=== PATIENT | female | born 1960 | race Caucasian/White ===

== ENCOUNTER 2016-04-14 16:48 | Inpatient (IN) | payer OTHER ==
[2016-04-14 19:27] VITALS: BMI 29.6
--- NOTE | 2016-04-14 20:11 | HP ---
COWS - Scale Resting Pulse: 0= CO 80 or Below Sweatin=Flushed/Facial Moisture Restless Observation: 5= Unable to Sit Still Pupil Size: 1= Pupils >than Normal Bone or Joint Aches: 4=Acute Joint/Muscle Pain Runny Nose/ Eye Tearin= None GI Upset > 30mins: 0= None Tremor Observation: 2= Slight Tremor Visible Yawning Observation: 1= 1-2x During Session Anxiety or Irritability: 2=Irritable/Anxious Goose Flesh Skin: 0=Smooth Skin COWS Score: 17 Admission ROS S - HPI Chief Complaint: C/O WITHDRAWAL SX'S. SEEKING DETOX TXMENT. Allergies/Adverse Reactions: Allergies Allergy/AdvReac Type Severity Reaction Status Date / Time No Known Allergies Allergy Verified 12/05/15 16:40 History of Present Illness: 56 Y.O. FEMALE WITH OPIOID DEPENDENCE ADMITTED FOR DETOX TXMENT. LAST HERE 2015. DENIES ANY DETOX SINCE. ALSO DENIES SUBOXONE USE FOR PAST 3 WEEKS. HAS SINCE BEEN USING HEROIN. DOES NOT WANT TO CONTINUE SUBOXONE. INTERESTED IN VIVITROL AFTER DC. Exam Limitations: No Limitations - Ebola screening Have you traveled outside of the country in the last 21 days: No Have you had contact with anyone from an Ebola affected area: No Have you been sick,other than usual withdrawal symptoms: No Do you have a fever: No - Review of Systems Constitutional: Loss of Appetite, Malaise, Night Sweats, Changes in sleep EENT: reports: No Symptoms Reported Respiratory: reports: No Symptoms reported Cardiac: reports: No Symptoms Reported GI: reports: Poor Appetite : reports: No Symptoms Reported Musculoskeletal: reports: Joint Pain Integumentary: reports: No Symptoms Reported Neuro: reports: No Symptoms reported Endocrine: reports: No Symptoms Reported Hematology: reports: No Symptoms Reported Psychiatric: reports: Anxious Other Systems: Reviewed and Negative Patient History - Patient Medical History Hx Anemia: No Hx Asthma: No Hx Chronic Obstructive Pulmonary Disease (COPD): No Hx Cancer: No Hx Cardiac Disorders: No Hx Congestive Heart Failure: No Hx Hypertension: Yes (ON MEDICATION) Hx Hypercholesterolemia: No Hx Pacemaker: No HX Cerebrovascular Accident: No Hx Seizures: No Hx Dementia: No Hx Diabetes: No Hx Gastrointestinal Disorders: No Hx Liver Disease: No Hx Genitourinary Disorders: No Hx Sexually Transmitted Disorders: No Hx Renal Disease (ESRD): No Hx Thyroid Disease: No Hx Human Immunodeficiency Virus (HIV): No Hx Hepatitis C: No Hx Depression: No Hx Suicide Attempt: No Hx Bipolar Disorder: No Hx Schizophrenia: No Other Medical History: DENIES - Patient Surgical History Past Surgical History: No Hx Neurologic Surgery: No Hx Cataract Extraction: No Hx Cardiac Surgery: No Hx Lung Surgery: No Hx Breast Surgery: No Hx Breast Biopsy: No Hx Abdominal Surgery: No Hx Appendectomy: No Hx Cholecystectomy: No Hx Genitourinary Surgery: No Hx Section: No Hx Orthopedic Surgery: No Hx Hysterectomy: No Anesthesia Reaction: No - PPD History Previous Implant?: Yes Documented Results: Negative w/proof Implanted On Prior [facility] Admission?: Yes Date: 08/06/15 PPD to be Administered?: No - Reproductive History Patient is a Female of Child Bearing Age (11 -55 yrs old): No Patient : No (NEG [facility]CG) - Smoking Cessation Smoking history: Current every day smoker Have you smoked in the past 12 months: Yes Aproximately how many cigarettes per day: 10 Cigars Per Day: 0 Hx Chewing Tobacco Use: No Initiated information on smoking cessation: Yes 'Breaking Loose' booklet given: 04/14/16 - Substance & Tx. History Hx Alcohol Use: Yes Hx Substance Use: Yes Substance Use Type: Heroin Hx Substance Use Treatment: Yes ([facility]) - Substances Abused HEROIN Route: Inhalation Frequency: Daily Amount used: 1 BAG Age of first use: 53 Date of Last Use: 04/13/16 Family Disease History - Family Disease History Family History: Denies Admission Physical Exam BHS - Vital Signs Vital Signs: Vital Signs - 24 hr 04/14/16 19:25 Temperature 97.6 F Pulse Rate 77 Respiratory 20 Rate Blood Pressure 129/86 - Physical General Appearance: Yes: Appropriately Dressed, Anxious HEENTM: Yes: EOMI, Normocephalic, Normal Voice, GISELLA, Pharynx Normal Respiratory: Yes: Chest Non-Tender, Lungs Clear, Normal Breath Sounds, No Respiratory Distress, No Accessory Muscle Use Neck: Yes: No masses,lesions,Nodules, Supple, Trachea in good position Breast: Yes: Breast Exam Deferred Cardiology: Yes: Regular Rhythm, Regular Rate, S1, S2 Abdominal: Yes: Normal Bowel Sounds, Non Tender, Soft Genitourinary: Yes: Within Normal Limits Back: Yes: Normal Inspection Musculoskeletal: Yes: full range of Motion, Gait Steady Extremities: Yes: Normal Capillary Refill, Normal Range of Motion, Non-Tender, Tremors 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 intact, Fully Oriented, Alert, Motor Strength 5/5 Integumentary: Yes: Normal Color, Dry Lymphatic: Yes: Within Normal Limits - Diagnostic (1) Essential hypertension Current Visit: Yes Status: Chronic (2) Nicotine dependence Current Visit: Yes Status: Chronic Qualifiers: Nicotine product type: cigarettes Substance use status: uncomplicated Qualified Code(s): F17.210 - Nicotine dependence, cigarettes, uncomplicated (3) Opioid dependence with withdrawal Current Visit: Yes Status: Chronic Cleared for Admission [facility] - Detox or Rehab [facility] Level of Care: Medically Managed Detox Regimen/Protocol: Methadone [facility] Breath Alcohol Content Breath Alcohol Content: 0 Urine Pregancy Test - Result Urine Test Results: Negative- NO Line Present Urine Drug Screen - Results Drug Screen Negative: No Urine Drug Screen Results: OPI-Opiates, OXY-Oxycodone
[2016-04-14] MEDS ORDERED: METHADONE HCL 10 MG TABLET (FOR DETOX USE ONLY) PO ONE ×2 (20:20→23:00)
[2016-04-14] MEDS ORDERED: NICOTINE POLACRILEX 2 MG GUM BUC PRN (20:20)
[2016-04-14] MEDS ORDERED: guaiFENesin/D-METHORPHAN HB 10 ML UNIT-DOSE CUPS PO PRN (20:20)
[2016-04-14] MEDS ORDERED: P-EPHED 60MG/TRIPROLIDI 2.5MG TABLET PO PRN (20:20)
[2016-04-14] MEDS ORDERED: ACETAMINOPHEN 325 MG TABLET (FP) PO PRN (20:20)
[2016-04-14] MEDS ORDERED: IBUPROFEN 400 MG TABLET (FP) PO PRN (20:20)
[2016-04-14] MEDS ORDERED: MAG HYDROX/AL HYDROX/SIMETH 30 ML UNIT-DOSE CUP PO PRN (20:20)
[2016-04-14] MEDS ORDERED: MAGNESIUM HYDROX 2400MG/30ML ORAL SUSPENSION 30 ML CUP PO PRN (20:20)
[2016-04-14] MEDS ORDERED: hydrOXYzine PAMOATE 50 MG CAPSULE (FP) PO PRN (20:20)
[2016-04-14] MEDS ORDERED: MENTHOL/PHENOL 1 EACH UD MM PRN (20:20)
[2016-04-14] MEDS ORDERED: LOPERAMIDE HCL 2 MG CAPSULE PO PRN (20:20)
[2016-04-14] MEDS ORDERED: MAGNESIUM CITRATE 300 ML BOTTLE PO PRN (20:20)
[2016-04-14] MEDS: THIAMINE HCL 100 MG TABLET (FP) PO SCH (22:30)
[2016-04-14] MEDS: NICOTINE 14 MG/24 HOURS TOPICAL PATCH TD SCH (23:17)
[2016-04-15 09:52] LABS: MCH 30.5 pg (25.7-33.7); MCHC 34.6 g/dl (32.0-36.0); MEAN CELL VOLUME 88.1 fl (80-96); MEAN PLT VOLUME 8.4 fl (7.5-11.1); PLATELET COUNT 192 K/MM3 (134-434); RDW 12.9 % (11.6-15.6); WHITE BLOOD COUNT 7.6 K/mm3 (4.0-10.0)
[2016-04-15] MEDS ORDERED: METHADONE HCL 5 MG TABLET (FOR DETOX USE ONLY) PO ONE (10:00)
[2016-04-15 10:16] LABS: ALBUMIN 3.2 g/dl (3.4-5.0); ALK PHOS 51 U/L (45-117); ANION GAP 7 (8-16); BILIRUBIN,TOTAL 0.3 mg/dL (0.2-1.0); CALCIUM 8.4 mg/dL (8.5-10.1); CO2 28 mmol/L (21-32); CREATININE 0.6 mg/dL (0.55-1.02); GLUCOSE,RANDOM 88 mg/dL (74-106); SGOT/AST 24 U/L (15-37); SGPT/ALT 21 U/L (12-78); TOT PROT 5.8 g/dl (6.4-8.2)
[2016-04-15] MEDS: PRENATAL VITAMINS W/ FOLIC ACID TABLET (FP) PO SCH (10:20)
[2016-04-15] MEDS: NICOTINE 14 MG/24 HOURS TOPICAL PATCH TD SCH (10:21)
--- NOTE | 2016-04-15 10:58 | PN ---
BHS COWS - Scale Resting Pulse: 0= CO 80 or Below Sweatin= Chills/Flushing Restless Observation: 1= Difficult to Sit Still Pupil Size: 1= Pupils >than Normal Bone or Joint Aches: 2= Severe Diffuse Aches Runny Nose/ Eye Tearin= Nasal Congestion GI Upset > 30mins: 1= Stomach Cramp Tremor Observation of Outstretched Hands: 1= Tremor [place], Not Seen Yawning Observation: 0= None Anxiety or Irritability: 1=Feels Anxious/Irritable Goose Flesh Skin: 0=Smooth Skin COWS Score: 9 BHS Progress Note (SOAP) Subjective: feels good Objective: 04/15/16 10:57 Vital Signs Temperature 98.2 F 04/15/16 10:16 Pulse Rate 79 04/15/16 10:16 Respiratory Rate 18 04/15/16 10:16 Blood Pressure 143/55 04/15/16 10:16 O2 Sat by Pulse Oximetry (%) Laboratory Tests 04/15/16 04/15/16 06:30 07:00 WBC 7.6 D RBC 4.03 Hgb 12.3 D Hct 35.5 MCV 88.1 MCHC 34.6 RDW 12.9 Plt Count 192 D MPV 8.4 Sodium 144 Potassium 4.0 Chloride 109 H Carbon Dioxide 28 Anion Gap 7 L BUN 15 D Creatinine 0.6 Creat Clearance w eGFR > 60 Random Glucose 88 D Calcium 8.4 L Total Bilirubin 0.3 AST 24 D ALT 21 D Alkaline Phosphatase 51 Total Protein 5.8 L Albumin 3.2 L pt aox3 in nad, ambulating 04/15/16 10:59 Assessment: 04/15/16 10:59 withdrawal sx's Plan: cont. detox increase fluids
[2016-04-15 11:07] LABS: HIV 1 & 2 AB NEGATIVE; HIV 1 AGp24 NEGATIVE
--- NOTE | 2016-04-15 12:53 | EKG ---
Test Reason : Blood Pressure : / mmHG Vent. Rate : 062 BPM Atrial Rate : 062 BPM P-R Int : 104 ms QRS Dur : 108 ms QT Int : 440 ms P-R-T Axes : 012 054 038 degrees QTc Int : 446 ms SINUS RHYTHM WITH SHORT DC INCOMPLETE RIGHT BUNDLE BRANCH BLOCK BORDERLINE ECG WHEN COMPARED WITH ECG OF 03-DEC-2015 17:36, DC INTERVAL HAS DECREASED Confirmed by FELTON COOPER, RANDALL ([id number]) on 04/15/2016 12:53:06 PM Referred By: Confirmed By:RANDALL YA MD
[2016-04-15] MEDS: diazePAM 5 MG TABLET PO PRN (22:24)
[2016-04-15] MEDS: THIAMINE HCL 100 MG TABLET (FP) PO SCH (22:24)
[2016-04-16] MEDS ORDERED: METHADONE HCL 5 MG TABLET (FOR DETOX USE ONLY) PO ONE (10:00)
--- NOTE | 2016-04-16 10:08 | PN ---
BHS COWS - Scale Resting Pulse: 1= IN 81-100 Sweatin=Flushed/Facial Moisture Restless Observation: 0= Sits Still Pupil Size: 0= Normal to Room Light Bone or Joint Aches: 1= Mild Discomfort Runny Nose/ Eye Tearin= None GI Upset > 30mins: 0= None Tremor Observation of Outstretched Hands: 1= Tremor [place], Not Seen Yawning Observation: 0= None Anxiety or Irritability: 1=Feels Anxious/Irritable Goose Flesh Skin: 0=Smooth Skin COWS Score: 6 BHS Progress Note (SOAP) Subjective: little anxious but feeling better. Objective: 04/16/16 10:08 Vital Signs Temperature 98.4 F 04/16/16 09:47 Pulse Rate 85 04/16/16 09:47 Respiratory Rate 20 04/16/16 09:47 Blood Pressure 145/93 04/16/16 09:47 O2 Sat by Pulse Oximetry (%) Laboratory Tests 04/14/16 04/15/16 04/15/16 07:00 06:30 07:00 WBC 7.6 D RBC 4.03 Hgb 12.3 D Hct 35.5 MCV 88.1 MCHC 34.6 RDW 12.9 Plt Count 192 D MPV 8.4 Sodium 144 Potassium 4.0 Chloride 109 H Carbon Dioxide 28 Anion Gap 7 L BUN 15 D Creatinine 0.6 Creat Clearance w eGFR > 60 Random Glucose 88 D Calcium 8.4 L Total Bilirubin 0.3 AST 24 D ALT 21 D Alkaline Phosphatase 51 Total Protein 5.8 L Albumin 3.2 L RPR Titer Hepatitis C Antibody <0.1 HIV 1&2 Antibody Screen HIV P24 Antigen 04/15/16 04/15/16 07:00 07:00 WBC RBC Hgb Hct MCV MCHC RDW Plt Count MPV Sodium Potassium Chloride Carbon Dioxide Anion Gap BUN Creatinine Creat Clearance w eGFR Random Glucose Calcium Total Bilirubin AST ALT Alkaline Phosphatase Total Protein Albumin RPR Titer Nonreactive Hepatitis C Antibody HIV 1&2 Antibody Screen Negative HIV P24 Antigen Negative awake/alert ambulating no acute distress Assessment: 04/16/16 10:08 withdrawal sx Plan: continue detox increase fluids
[2016-04-16] MEDS: PRENATAL VITAMINS W/ FOLIC ACID TABLET (FP) PO SCH (10:23)
[2016-04-16] MEDS: NICOTINE 14 MG/24 HOURS TOPICAL PATCH TD SCH (10:23)
[2016-04-16] MEDS: diazePAM 5 MG TABLET PO PRN (22:07)
[2016-04-16] MEDS: THIAMINE HCL 100 MG TABLET (FP) PO SCH (22:08)
[2016-04-16] MEDS: diphenhydrAMINE HCL 50 MG CAPSULE PO PRN (22:08)
[2016-04-16 22:41] LABS: URINE APPEARANCE CLOUDY; URINE BILIRUBIN NEGATIVE (NEGATIVE); URINE BLOOD NEGATIVE (NEGATIVE); URINE COLOR YELLOW; URINE GLUCOSE (UA) NEGATIVE (NEGATIVE); URINE KETONE NEGATIVE (NEGATIVE); URINE NITRITE NEGATIVE (NEGATIVE); URINE PROTEIN NEGATIVE (NEGATIVE); URINE UROBILINOGEN NEGATIVE E.U./dl (0.2-1.0)
[2016-04-16 22:45] LABS: URINE LEUK ESTERASE 3+ (NEGATIVE)
[2016-04-16 23:19] LABS: URINE BACTERIA FEW /hpf (NONE SEEN); URINE MUCUS RARE; URINE RBC 2 /hpf (0-3); URINE WBC 19 /hpf (3-5)
[2016-04-17] MEDS ORDERED: METHADONE HCL 10 MG TABLET (FOR DETOX USE ONLY) PO ONE (10:00)
[2016-04-17] MEDS: PRENATAL VITAMINS W/ FOLIC ACID TABLET (FP) PO SCH (10:10)
[2016-04-17] MEDS: NICOTINE 14 MG/24 HOURS TOPICAL PATCH TD SCH (10:11)
--- NOTE | 2016-04-17 11:11 | PN ---
BHS Progress Note (SOAP) Subjective: sweats feeling better. Objective: 04/17/16 11:10 Vital Signs Temperature 97.5 F L 04/17/16 10:00 Pulse Rate 80 04/17/16 10:00 Respiratory Rate 18 04/17/16 10:00 Blood Pressure 117/94 04/17/16 10:00 O2 Sat by Pulse Oximetry (%) awake/alert ambulating no acute distress Assessment: 04/17/16 11:11 withdrawal sx Plan: continue detox increase fluids d/c in am
[2016-04-17] MEDS: THIAMINE HCL 100 MG TABLET (FP) PO SCH (22:20)
[2016-04-17] MEDS: diphenhydrAMINE HCL 50 MG CAPSULE PO PRN (22:21)
[2016-04-18] MEDS ORDERED: METHADONE HCL 5 MG TABLET (FOR DETOX USE ONLY) PO ONE (06:00)
[2016-04-18 07:59] VITALS: BP 146/98; PULSE 63; TEMP 97.2
--- NOTE | 2016-04-18 11:45 | DS ---
[facility] Detox Discharge Summary Admission Date: 04/14/16 Discharge Date: 04/18/16 - History Present History: Opioid Dependence, Sedative Dependence Pertinent Past History: HTN - Physical Exam Results Vital Signs: Vital Signs Temperature 97.2 F L 04/18/16 06:00 Pulse Rate 63 04/18/16 06:00 Respiratory Rate 16 04/18/16 06:00 Blood Pressure 146/98 04/18/16 06:00 O2 Sat by Pulse Oximetry (%) Pertinent Admission Physical Exam Findings: Withdrawal sx. Laboratory Last Values WBC 7.6 K/mm3 (4.0-10.0) D 04/15/16 06:30 RBC 4.03 M/mm3 (3.60-5.2) 04/15/16 06:30 Hgb 12.3 GM/dL (10.7-15.3) D 04/15/16 06:30 Hct 35.5 % (32.4-45.2) 04/15/16 06:30 MCV 88.1 fl (80-96) 04/15/16 06:30 MCHC 34.6 g/dl (32.0-36.0) 04/15/16 06:30 RDW 12.9 % (11.6-15.6) 04/15/16 06:30 Plt Count 192 K/MM3 (134-434) D 04/15/16 06:30 MPV 8.4 fl (7.5-11.1) 04/15/16 06:30 Sodium 144 mmol/L (136-145) 04/15/16 07:00 Potassium 4.0 mmol/L (3.5-5.1) 04/15/16 07:00 Chloride 109 mmol/L (98-107) H 04/15/16 07:00 Carbon Dioxide 28 mmol/L (21-32) 04/15/16 07:00 Anion Gap 7 (8-16) L 04/15/16 07:00 BUN 15 mg/dL (7-18) D 04/15/16 07:00 Creatinine 0.6 mg/dL (0.55-1.02) 04/15/16 07:00 Creat Clearance w eGFR > 60 (>60) 04/15/16 07:00 Random Glucose 88 mg/dL (74-106) D 04/15/16 07:00 Calcium 8.4 mg/dL (8.5-10.1) L 04/15/16 07:00 Total Bilirubin 0.3 mg/dL (0.2-1.0) 04/15/16 07:00 AST 24 U/L (15-37) D 04/15/16 07:00 ALT 21 U/L (12-78) D 04/15/16 07:00 Alkaline Phosphatase 51 U/L (45-117) 04/15/16 07:00 Total Protein 5.8 g/dl (6.4-8.2) L 04/15/16 07:00 Albumin 3.2 g/dl (3.4-5.0) L 04/15/16 07:00 Urine Color Yellow 04/16/16 20:45 Urine Appearance Cloudy 04/16/16 20:45 Urine pH 8.0 (5.0-8.0) 04/16/16 20:45 Ur Specific [place] 1.014 (1.001-1.035) 04/16/16 20:45 Urine Protein Negative (NEGATIVE) 04/16/16 20:45 Urine Glucose (UA) Negative (NEGATIVE) 04/16/16 20:45 Urine Ketones Negative (NEGATIVE) 04/16/16 20:45 Urine Blood Negative (NEGATIVE) 04/16/16 20:45 Urine Nitrite Negative (NEGATIVE) 04/16/16 20:45 Urine Bilirubin Negative (NEGATIVE) 04/16/16 20:45 Urine Urobilinogen Negative E.U./dl (0.2-1.0) 04/16/16 20:45 Ur Leukocyte Esterase 3+ (NEGATIVE) H D 04/16/16 20:45 Urine RBC 2 /hpf (0-3) 04/16/16 20:45 Urine WBC 19 /hpf (3-5) 04/16/16 20:45 Ur Epithelial Cells Many /hpf (FEW) 04/16/16 20:45 Urine Bacteria Few /hpf (NONE SEEN) 04/16/16 20:45 Urine Mucus Rare 04/16/16 20:45 RPR Titer Nonreactive (NONREACTIVE) 04/15/16 07:00 Hepatitis C Antibody <0.1 s/co ratio (0.0-0.9) 04/14/16 07:00 HIV 1&2 Antibody Screen Negative 04/15/16 07:00 HIV P24 Antigen Negative 04/15/16 07:00 labs noted - Treatment Hospital Course: Detox Protocol Followed, Detoxed Safely, Responded well, Discharged Condition Good, Rehab Referral Accepted Patient has Accepted a Rehab Referral to: [facility] - Medication Discharge Medications: Ambulatory Orders Valsartan 40 mg PO DAILY 08/04/15 - Diagnosis (1) Essential hypertension Status: Chronic (2) Nicotine dependence Status: Chronic Qualifiers: Nicotine product type: cigarettes Substance use status: uncomplicated Qualified Code(s): F17.210 - Nicotine dependence, cigarettes, uncomplicated (3) Opioid dependence with withdrawal Status: Acute (4) Uncomplicated sedative, hypnotic or anxiolytic withdrawal Status: Acute - AMA Did Patient Leave Against Medical Advice: No
== END 2016-04-18 09:30 | disposition home or self-care (01) | DRG 773 ==
LOC: YASAS 16:48 → Y6N 20:42
PROVIDERS: ADMIT Internal Medicine Addiction Medicine; ATTEND Internal Medicine Addiction Medicine
PROC: HZ2ZZZZ Detoxification Services for Substance Abuse Treatment (ICD-10-PCS; principal; 2016-04-18)
DX: F11.23 Opioid dependence with withdrawal (principal); F13.230 Sedative, hypnotic or anxiolytic dependence with withdrawal, uncomplicated; F17.210 Nicotine dependence, cigarettes, uncomplicated; I10 Essential (primary) hypertension
CPT/HCPCS: 36415; 80053; 81003; 81015; 85027; 86593; 87389; 93005; 93010

== ENCOUNTER 2016-09-01 18:30 | Emergency (ER) | payer OTHER ==
[2016-09-01 18:37] VITALS: BP 141/99; PULSE 85; TEMP 98.1; BMI 29.2
[2016-09-01] MEDS ORDERED: KETOROLAC TROMETHAMINE 60 MG/2 ML VIAL IM ONE (19:50)
--- NOTE | 2016-09-01 19:50 | PDOC ---
History of Present Illness - History of Present Illness Initial Comments: 09/01/16 19:53 The patient is a 56 year old female, with a significant past medical history of hypertension, who presents to the emergency department with pain to her left hip for 3 days s/p falling down 8 steps in her house about a week ago. The patient denies any severe pain immediately after her fall. The patient denies head trauma. She denies loss of consciousness. The patient reports her pain as 10/10, sharp and throbbing, localized to the left hip and radiating to her left lateral saunders. She reports tenderness to her left lateral saunders as well as numbness. She reports her pain is exacerbated with lying flat and walking. SHe reports mild alleviation of her pain with sitting. She also reports taking two 5mg percocets that she had left over yesterday with little to no pain relief. She denies chest pain, shortness of breath, headache and dizziness. She denies fever, chills, nausea, vomit, diarrhea and constipation. She denies dysuria, frequency, urgency and hematuria. PAST MEDICAL HISTORY: no significant history PAST SURGICAL HISTORY: no significant history FAMILY HISTORY: no pertinent history SOCIAL HISTORY: Pt lives with family and is employed. Smokes 1 pack daily. MEDICATIONS: reviewed ALLERGIES: As per nursing notes ROS General: No fevers or chills, no weakness, no weight loss HEENT: No change in vision. No sore throat,. No ear pain CardioVascular: No chest pain or shortness of breath Respiratory:No cough, or wheezing. Gastrointestinal: no nausea, vomiting, diarrhea or constipation, No rectal bleeding Genitourinary: No dysuria, hematuria, or frequency Musculoskeletal: (+) pain to left hip with radiation to left saunders. No joint or muscle swelling Neurologic: No headache, vertigo, dizziness or loss of consciousness Psychiatric: nor depression Skin: No rashes or easy bruising Endocrine: no increased thirst or abnormal weight change Allergic: no skin or latex allergy All other systems reviewed and normal Physical Exam: General: Well-nourished well-developed individual, no acute distress HEENT: Throat: Normal, tonsils normal, no erythema or exudate Neck: Supple, no meningeal signs, no lymphadenopathy Eyes::Pupils equal reactive and round, extraocular motion intact Chest: Nontender to palpation Cardiac: S1-S2 normal, regular rate and rhythm, no murmurs rubs or gallops Respiratory: Lungs clear to auscultation bilateral Abdomen: Soft, nondistended, normal bowel sounds, nontender to palpation diffusely Musculoskeletal: (+) tender to palpation at L4L5S1 with some left paraspinal tenderness.tenderness to palpation at left sciatic notch. Negative straight leg raising. Mild decreased sensation to left lateral thigh. No bony tenderness to palpation to hip or lower leg. Skin: No rashes Neuro: Alert and oriented x3, nonfocal exam, grossly intact. slightly antalgic gait. Psych: Normal mood and affect <Jaylyn Villegas - Last Filed: 09/01/16 20:47> - General Exam Limitations: No Limitations - History of Present Illness Initial Comments: 09/01/16 22:42 A portion of this note was documented by scribe services under my direction. I have reviewed the details of the note, within reason, and agree with the documentation. The case summary and management plan written by me. X-rays lumbar spine questionable disc space narrowing L5-S1 area otherwise normal Hip and pelvis normal no acute bony pathology Assessment and plan: This is a 56-year-old female with a radiating down her left leg. Patient has pain on palpation over the sciatic area with some disc space narrowing L5-S1 on her plain films. Patient told to follow-up with her primary care doctor for possible referral to a back specialist. Patient discharged with prescriptions for Naprosyn and Flexeril. <José Miguel Montano I - Last Filed: 09/01/16 22:44> - General Chief Complaint: Pain Stated Complaint: LEFT LEG PAIN Time Seen by Provider: 09/01/16 18:41 Past History <Jaylyn Villegas - Last Filed: 09/01/16 20:47> - Past Medical History Anemia: No Asthma: No Cancer: No Cardiac Disorders: No CVA: No COPD: No CHF: No Dementia: No Diabetes: No GI Disorders: No Disorders: No HTN: Yes Hypercholesterolemia: No Kidney Stones: No Liver Disease: No Suicide Attempt (Hx): No Seizures: No Thyroid Disease: No - Surgical History Abdominal Surgery: No Appendectomy: No Cardiac Surgery: No Cholecystectomy: No Lung Surgery: No Neurologic Surgery: No Orthopedic Surgery: No - Reproductive History PID: No - Psycho/Social/Smoking Cessation Hx Anxiety: No Suicidal Ideation: No Smoking Status: Yes Smoking History: Current every day smoker Have you smoked in the past 12 months: Yes Number of Cigarettes Smoked Daily: 20 Cigars Per Day: 0 Information on smoking cessation initiated: Yes 'Breaking Loose' booklet given: 09/01/16 Hx Alcohol Use: Yes Drug/Substance Use Hx: Yes Substance Use Type: Heroin Hx Substance Use Treatment: Yes ([facility]) <José Miguel Montano I - Last Filed: 09/01/16 22:44> - Past Medical History Allergies/Adverse Reactions: Allergies Allergy/AdvReac Type Severity Reaction Status Date / Time No Known Allergies Allergy Verified 09/01/16 18:32 Home Medications: Ambulatory Orders Valsartan 40 mg PO DAILY 08/04/15 Cyclobenzaprine HCl [Flexeril -] 10 mg PO TID #21 tablet 09/01/16 Naproxen [Naprosyn -] 500 mg PO BID #28 tablet 09/01/16 Trauma Specific PMHX - Complaint Specific PMHX Arthritis: No <José Miguel Montano I - Last Filed: 09/01/16 22:44> *Physical Exam - Vital Signs Last Vital Signs Temp Pulse Resp BP Pulse Ox 98.1 F 85 18 141/99 97 09/01/16 18:30 09/01/16 18:30 09/01/16 18:30 09/01/16 18:30 09/01/16 18:30 <Jaylyn Villegas - Last Filed: 09/01/16 20:47> - Vital Signs Last Vital Signs Temp Pulse Resp BP Pulse Ox 98.1 F 85 18 141/99 97 09/01/16 18:30 09/01/16 18:30 09/01/16 18:30 09/01/16 18:30 09/01/16 18:30 <José Miguel Montano I - Last Filed: 09/01/16 22:44> *DC/Admit/Observation/Transfer - Attestations Scribe Attestion: 09/01/16 19:53 Documentation prepared by Jaylyn Villegas, acting as biomedical electronics technician for Mihaela Hoover MD, <Jaylyn Villegas - Last Filed: 09/01/16 20:47> - Discharge Dispostion Admit: No <José Miguel Montano I - Last Filed: 09/01/16 22:44> Diagnosis at time of Disposition: Sciatica Qualifiers: Laterality: left Qualified Code(s): M54.32 - Sciatica, left side - Discharge Dispostion Disposition: HOME Condition at time of disposition: Stable - Prescriptions Prescriptions: Cyclobenzaprine HCl [Flexeril -] 10 mg PO TID #21 tablet Naproxen [Naprosyn -] 500 mg PO BID #28 tablet - Patient Instructions Additional Instructions: Take Naprosyn 1 tablet twice a day with food don't take on an empty stomach. Take a muscle relaxant Flexeril as often as 3 times a day. The Flexeril will make you drowsy so do not take it if you have to drive or do anything that requires your concentration. Try to limit it to the nighttime hours. Follow-up with your primary care Dr. if not improved by next week. Return to the emergency department immediately with ANY new, persistent or worsening symptoms. Continue any medications as previously prescribed by your physician. You should follow up with your primary doctor as soon as possible regarding today's emergency department visit. . Please make sure your doctor reviews the results of your emergency evaluation. Thank you for coming to the Emergency Department today for your care. It was a pleasure to see you today. Please note that your evaluation is INCOMPLETE until you follow-up with your doctor.
[2016-09-01] MEDS ORDERED: KETOROLAC TROMETHAMINE 60 MG/2 ML VIAL ONE (19:56)
== END 2016-09-01 20:58 | disposition home or self-care (01) ==
LOC: FER 18:30
PROC: 3E0233Z Introduction of Anti-inflammatory into Muscle, Percutaneous Approach (ICD-10-PCS; principal; 2016-09-01)
DX: M54.32 Sciatica, left side (principal); I10 Essential (primary) hypertension; F17.210 Nicotine dependence, cigarettes, uncomplicated
CPT/HCPCS: 72100-TC; 73523-TC; 96372; 99284-25

== ENCOUNTER 2017-03-02 17:40 | Emergency (ER) | payer OTHER ==
[2017-03-02 17:50] VITALS: TEMP 97.8; BMI 29.2
[2017-03-02] MEDS ORDERED: ONDANSETRON *ODT* 4 MG TABLET SL ONE (17:56)
[2017-03-02] MEDS ORDERED: ONDANSETRON *ODT* 4 MG TABLET ONE (17:59)
[2017-03-02 18:31] LABS: BASO % 0.4 % (0-2.0); EOS % 4.5 % (0-4.5); HEMATOCRIT 39.5 % (32.4-45.2); HEMOGLOBIN 13.6 GM/dl (10.7-15.3); MCH 30.5 pg (25.7-33.7); MCHC 34.3 g/dl (32.0-36.0); MEAN CELL VOLUME 88.8 fl (80-96); MEAN PLT VOLUME 8.4 fl (7.5-11.1); MONO % 2.1 % (3.8-10.2); PLATELET COUNT 257 K/MM3 (134-434); RBC 4.44 M/mm3 (3.60-5.2); RDW 12.2 % (11.6-15.6); WHITE BLOOD COUNT 12.2 K/mm3 (4.0-10.8)
[2017-03-02 18:41] LABS: ALK PHOS 67 U/L (32-92); ANION GAP 9 (8-16); BILIRUBIN,TOTAL 0.4 mg/dl (0.2-1.0); BLOOD UREA NITROGEN 12 mg/dl (7-18); CALCIUM 9.1 mg/dl (8.4-10.2); CHLORIDE 102 mmol/L (98-107); CO2 26 mmol/L (22-28); CREATININE 0.6 mg/dl (0.6-1.3); GLUCOSE,RANDOM 139 mg/dl (74-106); POTASSIUM 3.1 mmol/L (3.5-5.1); SGOT/AST 23 U/L (10-42); SGPT/ALT 21 U/L (10-40); SODIUM 137 mmol/L (136-145); TOT PROT 6.8 g/dl (6.4-8.3)
[2017-03-02 18:43] LABS: ALCOHOL < 5.0 mg/dl (5.3-49)
[2017-03-02] MEDS ORDERED: POTASSIUM CHLORIDE TABS 20 MEQ TABLET.ER (FP) PO ONE ×2 (18:49→18:50)
--- NOTE | 2017-03-02 18:49 | PDOC ---
History of Present Illness - General Chief Complaint: Ingestion Stated Complaint: INGESTED CYMBALTA Time Seen by Provider: 03/02/17 17:47 History Source: Patient Exam Limitations: No Limitations - History of Present Illness Initial Comments: 03/02/17 18:36 The patient is a 57F with a PMH of depression and HTN who presents to the ER with complaints of nausea. The patient states that she took 10 of an unknown pill ( said it was Cymbalta) last night after having an argument with her . She is unsure of whether or not she was trying to her herself. She denies current SI or HI. She says that this morning she went out and snorted heroin in spite of her . She also is complaining of R hand and R foot swelling which she says have gotten better but still present. Past History - Past Medical History Allergies/Adverse Reactions: Allergies Allergy/AdvReac Type Severity Reaction Status Date / Time No Known Allergies Allergy Verified 03/02/17 17:44 Home Medications: Ambulatory Orders Valsartan 40 mg PO DAILY 08/04/15 Cephalexin Monohydrate [Keflex -] 500 mg PO Q8H #15 capsule 03/02/17 Naltrexone Microspheres [Vivitrol] 380 mg IM MONTHLY 03/02/17 Sertraline HCl [Zoloft] 100 mg PO DAILY 03/02/17 Water Pill 1 tab PO DAILY 03/02/17 Anemia: No Asthma: No Cancer: No Cardiac Disorders: No CVA: No COPD: No CHF: No Dementia: No Diabetes: No GI Disorders: No Disorders: No HTN: Yes Hypercholesterolemia: No Kidney Stones: No Liver Disease: No Psychiatric Problems: Yes (DEPRESSION) Seizures: No Thyroid Disease: No - Surgical History Abdominal Surgery: No Appendectomy: No Cardiac Surgery: No Cholecystectomy: No Lung Surgery: No Neurologic Surgery: No Orthopedic Surgery: No - Reproductive History PID: No - Suicide/Smoking/Psychosocial Hx Smoking Status: Yes Smoking History: Current every day smoker Have you smoked in the past 12 months: Yes Number of Cigarettes Smoked Daily: 20 Cigars Per Day: 0 Information on smoking cessation initiated: Yes 'Breaking Loose' booklet given: 03/02/17 Hx Alcohol Use: No Drug/Substance Use Hx: Yes Substance Use Type: Heroin Hx Substance Use Treatment: Yes ([facility]) Review of Systems - Review of Systems Able to Perform ROS?: Yes Comments:: 03/02/17 18:54 GENERAL/CONSTITUTIONAL: No fever or chills. No weakness. HEAD, EYES, EARS, NOSE AND THROAT: No change in vision. No ear pain or discharge. No sore throat. CARDIOVASCULAR: No chest pain, palpitations, or lightheadedness. RESPIRATORY: No cough, wheezing, shortness of breath, or hemoptysis. GASTROINTESTINAL: Positive for nausea. No vomiting, diarrhea, constipation, or abdominal pain. GENITOURINARY: No dysuria, frequency, hematuria, or change in urination. MUSCULOSKELETAL: No joint or muscle swelling or pain. No neck or back pain. SKIN: Positive for R hand and R foot swelling and erythema. NEUROLOGIC: No headache, numbness, tingling, weakness, loss of consciousness, or change in strength/sensation. ENDOCRINE: No increased thirst. No abnormal weight change. HEMATOLOGIC/LYMPHATIC: No anemia, easy bleeding, or history of blood clots. ALLERGIC/IMMUNOLOGIC: No hives or skin allergy. Is the patient limited Kazakh proficient: No *Physical Exam - Vital Signs Last Vital Signs Temp Pulse Resp BP Pulse Ox 97.8 F 87 18 142/93 98 03/02/17 17:40 03/02/17 17:40 03/02/17 17:40 03/02/17 17:40 03/02/17 17:40 - Physical Exam Comments: 03/02/17 18:55 GENERAL: Well developed, well nourished. Awake and alert. No acute distress. HEENT: Normocephalic, atraumatic. Hearing grossly normal. Moist mucous membranes. PERRLA, EOMI. No conjunctival pallor. Sclera are non-icteric. NECK: Supple. Full ROM. No JVD. CARDIOVASCULAR: Regular rate and rhythm. No murmurs, rubs, or gallops. Distal pulses are 2+ and symmetric. PULMONARY: Diffuse inspiratory wheezing with rales in b/l lower lobes. No evidence of respiratory distress. ABDOMINAL: Soft. Non-tender. Non-distended. No rebound or guarding. No organomegaly. Normoactive bowel sounds. GENITOURINARY: No CVA tenderness bilaterally. MUSCULOSKELETAL: Normal range of motion at all joints. No bony deformities or tenderness. EXTREMITIES: No cyanosis. No clubbing. No edema. No calf tenderness. SKIN: No erythema or edema in b/l extremities. Warm and dry. Normal capillary refill. No rashes. No jaundice. NEUROLOGICAL: Alert, awake, appropriate. Cranial nerves 2-12 intact. Normal speech. Gait is normal without ataxia. PSYCHIATRIC: Cooperative. Good eye contact. Appropriate mood and affect. ED Treatment Course - LABORATORY CBC & Chemistry Diagram: 03/02/17 18:07 03/02/17 18:07 - ADDITIONAL ORDERS Additional order review: 03/02/17 18:07 RBC 4.44 MCV 88.8 MCHC 34.3 RDW 12.2 MPV 8.4 Neutrophils % 79.0 Lymphocytes % 14.0 Monocytes % 2.1 L Eosinophils % 4.5 Basophils % 0.4 - Medications Given in the ED: ED Medications Discontinued Medications Generic Name Dose Route Start Last Admin Trade Name Freq PRN Reason Stop Dose Admin Ondansetron HCl 4 mg 03/02/17 17:56 03/02/17 18:00 Zofran Odt - SL 03/02/17 17:57 4 mg ONCE ONE Administration Medical Decision Making - Medical Decision Making 03/02/17 18:56 The patient is a 57F with a PMH of COPD, HTN, and depression who presents after ingesting cymbalta and using heroin. The patient uses vivitrol once a month for opioid dependence. She denies any active SI or plan. Will give psych f/u and keflex outpatient for possible cellulitis. 03/02/17 19:09 Labs WNL. EKG normal. CMP shows K of 3.1. Given 40 of K-dur. Will d/c home. *DC/Admit/Observation/Transfer Diagnosis at time of Disposition: Opioid dependence with withdrawal Depression Qualifiers: Depression Type: unspecified Qualified Code(s): F32.9 - Major depressive disorder, single episode, unspecified - Discharge Dispostion Disposition: HOME Condition at time of disposition: Stable Admit: No - Prescriptions Prescriptions: Cephalexin Monohydrate [Keflex -] 500 mg PO Q8H #15 capsule - Referrals Referrals: Bakari Nam MD [Staff Physician] - - Patient Instructions Printed Discharge Instructions: Tips for Safely Using Medications Additional Instructions: Please return to the ER if symptoms persist, worsen, or new symptoms arise. Please follow up with your primary care physician in 2-3 days. Please follow up with Dr. Nam in 2-3 days. Please return to the ER if you have any signs or symptoms of chest pain, shortness of breath, uncontrollable fever, chills, nausea, vomiting, numbness, tingling, or weakness in any part of your body, changes in vision, or slurred speech. Please take your medications as prescribed. - Post Discharge Activity
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
[2017-03-02 19:31] VITALS: BP 132/58; PULSE 82
[2017-03-02 20:19] LABS: ACETAMINOPHEN < 2.000 ug/ml (10.0-30.0); SALICYLATE < 4.0 mg/dl (0.0-30.0)
--- NOTE | 2017-03-03 14:27 | EKG ---
Test Reason : Blood Pressure : / mmHG Vent. Rate : 083 BPM Atrial Rate : 083 BPM P-R Int : 152 ms QRS Dur : 102 ms QT Int : 396 ms P-R-T Axes : 072 053 039 degrees QTc Int : 465 ms NORMAL SINUS RHYTHM INCOMPLETE RIGHT BUNDLE BRANCH BLOCK WHEN COMPARED WITH ECG OF 14-APR-2016 21:58, ID INTERVAL HAS INCREASED Confirmed by MARGE SANCHEZ MD ([id number]) on 03/03/2017 2:27:30 PM Referred By: DR PAREDES Confirmed By:MARGE SANCHEZ MD
== END 2017-03-02 19:30 | disposition home or self-care (01) ==
LOC: FER 17:40
DX: F11.23 Opioid dependence with withdrawal (principal); F32.9 Major depressive disorder, single episode, unspecified; F17.210 Nicotine dependence, cigarettes, uncomplicated; I10 Essential (primary) hypertension; J44.9 Chronic obstructive pulmonary disease, unspecified
CPT/HCPCS: 36415; 80053; 80307; 85025; 93005; 99285-25

== ENCOUNTER 2017-04-20 22:12 | Observation (INO) | payer OTHER ==
--- NOTE | 2017-04-20 22:22 | PDOC ---
History of Present Illness - General History Source: Patient Exam Limitations: No Limitations - History of Present Illness Initial Comments: 04/20/17 22:38 The patient is a 55 year old female with past medical history of heroin use, hypertension, and depression BIBA s/p witnessed seizure by her as well as nausea, vomiting, and diarrhea. The patient states shes experienced one seizure in the past which presented the same as todays. She denies any current headache, visual changes or focal deficits. She complains of a dry productive cough as well but denies any shortness of breath or chest pain. The patient reports she began snorting heroin two years ago when her son . She is currently requesting detox. The patient denies any recent illness, fevers, or chills. She received Zofran in the field. Allergies: none Past surgeries: none Social History: 40 pack year smoker, denies alcohol use. Heroin use. Denies any other recreational drug use. Patient works as a lunch lady in a school. PCP: Radha Zuniga <Migdalia Manuel - Last Filed: 04/21/17 02:12> <Samina Walton - Last Filed: 04/21/17 02:32> - General Chief Complaint: Seizure Stated Complaint: SEIZURE Time Seen by Provider: 04/20/17 22:20 Past History <Migdalia Manuel - Last Filed: 04/21/17 02:12> - Past Medical History Anemia: No Asthma: No Cancer: No Cardiac Disorders: No CVA: No COPD: No CHF: No Dementia: No Diabetes: No GI Disorders: No Disorders: No HTN: Yes Hypercholesterolemia: No Kidney Stones: No Liver Disease: No Seizures: No Thyroid Disease: No - Surgical History Abdominal Surgery: No Appendectomy: No Cardiac Surgery: No Cholecystectomy: No Lung Surgery: No Neurologic Surgery: No Orthopedic Surgery: No - Reproductive History PID: No - Suicide/Smoking/Psychosocial Hx Smoking Status: Yes Smoking History: Current every day smoker Have you smoked in the past 12 months: Yes Number of Cigarettes Smoked Daily: 20 Cigars Per Day: 0 'Breaking Loose' booklet given: 09/01/16 Hx Alcohol Use: Yes Drug/Substance Use Hx: Yes Substance Use Type: Heroin Hx Substance Use Treatment: Yes ([facility]) <Samina Walton - Last Filed: 04/21/17 02:32> - Past Medical History Allergies/Adverse Reactions: Allergies Allergy/AdvReac Type Severity Reaction Status Date / Time No Known Allergies Allergy Verified 04/20/17 22:20 Home Medications: Ambulatory Orders Valsartan 40 mg PO DAILY 08/04/15 Naltrexone Microspheres [Vivitrol] 380 mg IM MONTHLY 03/02/17 Sertraline HCl [Zoloft] 100 mg PO DAILY 03/02/17 Review of Systems - Review of Systems Able to Perform ROS?: Yes Comments:: 04/20/17 22:38 CONSTITUTIONAL: Absent: fever, chills, diaphoresis, generalized weakness, malaise, loss of appetite HEENT: Absent: rhinorrhea, nasal congestion, throat pain, throat swelling, difficulty swallowing, mouth swelling, ear pain, eye pain, visual Changes CARDIOVASCULAR: Absent: chest pain, syncope, palpitations, irregular heart rate, lightheadedness , peripheral edema RESPIRATORY: Present: cough Absent: cough, shortness of breath, dyspnea with exertion, orthopnea, wheezing, stridor, hemoptysis GASTROINTESTINAL: Present: nausea, vomiting, diarrhea Absent: abdominal pain, abdominal distension, constipation, melena, hematochezia GENITOURINARY: Absent: dysuria, frequency, urgency, hesitancy, hematuria, flank pain, genital pain MUSCULOSKELETAL: Absent: myalgia, arthralgia, joint swelling SKIN: Absent: rash, itching, pallor HEMATOLOGIC/IMMUNOLOGIC: Absent: easy bleeding, easy bruising, lymphadenopathy, frequent infections ENDOCRINE: Absent: unexplained weight gain, unexplained weight loss, heat intolerance, cold intolerance NEUROLOGIC: Present: seizure Absent: headache, focal weakness or paresthesias, dizziness, unsteady gait, mental status changes, bladder or bowel incontinence PSYCHIATRIC: Absent: anxiety, depression, suicidal or homicidal ideation, hallucinations. All Other Systems: Reviewed and Negative <Migdalia Manuel - Last Filed: 04/21/17 02:12> *Physical Exam - Vital Signs Last Vital Signs Temp Pulse Resp BP Pulse Ox 90 20 120/87 95 04/20/17 22:21 04/20/17 22:21 04/20/17 22:21 04/20/17 22:21 - Physical Exam Comments: 04/20/17 22:41 GENERAL: Well developed, well nourished. Awake and alert. No acute distress. HEENT: Normocephalic, atraumatic. PERRLA, EOMI. No conjunctival pallor. Sclera are non- icteric. Moist mucous membranes. Oropharynx is clear. NECK: Supple. Full ROM. No JVD. Carotid pulses 2+ and symmetric, without bruits. No thyromegaly. No lymphadenopathy. CARDIOVASCULAR: Regular rate and rhythm. No murmurs, rubs, or gallops. Distal pulses are 2+ and symmetric. PULMONARY: No evidence of respiratory distress. Coarse cough, mild scattered wheezes. No rales or rhonchi. ABDOMINAL: Soft. Non-tender. Non-distended. No rebound or guarding. No organomegaly. Normoactive bowel sounds. MUSCULOSKELETAL Normal range of motion at all joints. No bony deformities or tenderness. No CVA tenderness. EXTREMITIES: No cyanosis. No clubbing. No edema. No calf tenderness. SKIN: Warm and dry. Normal capillary refill. No rashes. No jaundice. NEUROLOGICAL: Alert, awake, appropriate. Cranial nerves 2-12 intact. No deficits to light touch and temperature in face, upper extremities and lower extremities. No motor deficits in the in face, upper extremities and lower extremities. Normoreflexic in the upper and lower extremities. Normal speech. Toes are down-going bilaterally. Gait is normal without ataxia. PSYCHIATRIC: Cooperative. Good eye contact. Appropriate mood and affect. <Migdalia Manuel - Last Filed: 04/21/17 02:12> ED Treatment Course - LABORATORY CBC & Chemistry Diagram: 04/20/17 22:40 04/20/17 22:40 - Medications Given in the ED: ED Medications Discontinued Medications Generic Name Dose Route Start Last Admin Trade Name Chipq PRN Reason Stop Dose Admin Ondansetron HCl 4 mg 04/20/17 22:26 04/20/17 22:31 Zofran Injection IVPUSH 04/20/17 22:27 4 mg ONCE STA Administration <Migdalia Manuel - Last Filed: 04/21/17 02:12> - LABORATORY CBC & Chemistry Diagram: 04/20/17 22:40 04/20/17 22:40 <Samina Walton - Last Filed: 04/21/17 02:32> Medical Decision Making - Medical Decision Making 04/21/17 02:12 Microblog sent to [facility]. Awaiting call back. <Migdalia Manuel - Last Filed: 04/21/17 02:12> - Medical Decision Making 04/21/17 02:13 57-year-old female brought in by ambulance after reported witnessed seizure at home. Upon arrival, she is alert and oriented 3. No oral trauma had reported but stated she had urinary incontinence. Patient states that she has been trying to detox herself off of heroin. She says she's had some nausea, vomiting and diarrhea 40 pack year h/o tobacco use and she presents with mild wheezing and dry hacking cough - social history ,works as lunch lady in school, 40 pk yr tob use, snorting heroin for past 2 years no gross focal neuro deficits review labs :trop 0.11 and will need to be trended cxr no infiltrates appreciated pt received resp tx and prednisone spoke w Dr Herrera and pt will be NONCARDIAC TELEMETRY 04/21/17 02:26 ct scan pending and signed out to Elena 04/21/17 02:31 <Samina Walton - Last Filed: 04/21/17 02:32> *DC/Admit/Observation/Transfer - Attestations Scribe Attestion: 04/20/17 22:41 Documentation prepared by Migdalia Manuel, acting as medical and scientific illustrator for Samina Walton MD. <Migdalia Manuel - Last Filed: 04/21/17 02:12> - Discharge Dispostion Admit: Yes <Samina Walton - Last Filed: 04/21/17 02:32> Diagnosis at time of Disposition: Seizure, Wheezing, Opioid dependence with withdrawal, Elevated troponin Nicotine dependence Qualifiers: Nicotine product type: cigarettes Substance use status: uncomplicated Qualified Code(s): F17.210 - Nicotine dependence, cigarettes, uncomplicated - Referrals Referrals: Radha Zuniga [Primary Care Provider] -
[2017-04-20] MEDS ORDERED: ONDANSETRON 4 MG/2 ML VIAL IVPUSH STA (22:26)
[2017-04-20] MEDS ORDERED: ONDANSETRON 4 MG/2 ML VIAL ONE ×2 (22:28→22:29)
[2017-04-20] MEDS ORDERED: SODIUM CHLORIDE 1,000 ML IV STA (22:28)
[2017-04-20 22:47] LABS: BASO % 0.5 % (0-2.0); EOS % 1.2 % (0-4.5); HEMATOCRIT 43.4 % (32.4-45.2); HEMOGLOBIN 14.8 GM/dL (10.7-15.3); LYMPH % 18.4 % (8-40); MCH 30.1 pg (25.7-33.7); MCHC 34.2 g/dl (32.0-36.0); MEAN CELL VOLUME 88.2 fl (80-96); MEAN PLT VOLUME 7.5 fl (7.5-11.1); MONO % 4.2 % (3.8-10.2); NEUT % 75.7 % (42.8-82.8); PLATELET COUNT 322 K/MM3 (134-434); RBC 4.92 M/mm3 (3.60-5.2); RDW 13.7 % (11.6-15.6); WHITE BLOOD COUNT 11.5 K/mm3 (4.0-10.0)
[2017-04-20 23:00] LABS: INR 1.04 (0.82-1.09); PROTHROMBIN TIME (PATIENT) 11.7 SEC (9.98-11.88)
[2017-04-20] MEDS ORDERED: ALBUTEROL SO4 2.5/IPRATROPIUM 0.5 INH SOL 3 ML VIAL.NEB. NEB ONE ×2 (23:09→23:14)
[2017-04-20 23:21] LABS: ALBUMIN 3.9 g/dl (3.4-5.0); ANION GAP 12 (8-16); BILIRUBIN,TOTAL 0.4 mg/dL (0.2-1.0); BLOOD UREA NITROGEN 9 mg/dL (7-18); CALCIUM 9.1 mg/dL (8.5-10.1); CHLORIDE 109 mmol/L (98-107); CO2 23 mmol/L (21-32); CREATININE 0.7 mg/dL (0.55-1.02); GLUCOSE,RANDOM 93 mg/dL (74-106); POTASSIUM 3.8 mmol/L (3.5-5.1); SGOT/AST 24 U/L (15-37); SGPT/ALT 28 U/L (12-78); SODIUM 144 mmol/L (136-145)
[2017-04-20 23:24] LABS: ALK PHOS 90 U/L (45-117)
[2017-04-21 01:35] LABS: URINE APPEARANCE CLEAR; URINE BILIRUBIN NEGATIVE (NEGATIVE); URINE BLOOD NEGATIVE (NEGATIVE); URINE COLOR STRAW; URINE GLUCOSE (UA) NEGATIVE (NEGATIVE); URINE KETONE TRACE (NEGATIVE); URINE LEUK ESTERASE NEGATIVE (NEGATIVE); URINE NITRITE NEGATIVE (NEGATIVE); URINE PROTEIN NEGATIVE (NEGATIVE); URINE UROBILINOGEN NEGATIVE mg/dL (0.2-1.0)
[2017-04-21 01:54] LABS: COCAINE, UR NEGATIVE ng/ml (CUTOFF=300); METHADONE, UR NEGATIVE ng/ml (CUTOFF=300); PHENCYCLIDINE,URINE NEGATIVE ng/ml (CUTOFF=25); URINE AMPHETAMINES NEGATIVE ng/ml (CUTOFF=500); URINE BARBITURATES NEGATIVE ng/ml (CUTOFF=200); URINE BENZODIAZEPINES NEGATIVE ng/ml (CUTOFF=200)
[2017-04-21 01:56] LABS: OPIATES, URI POSITIVE ng/ml (CUTOFF=300)
[2017-04-21] MEDS ORDERED: predniSONE 20 MG TABLET (UD) PO ONE ×2 (02:10→06:00)
--- NOTE | 2017-04-21 02:16 | PN ---
Teaching Attending Note Name of Resident: Jami Lucero ATTENDING PHYSICIAN STATEMENT I saw and evaluated the patient. I reviewed the resident's note and discussed the case with the resident. I agree with the resident's findings and plan as documented. SUBJECTIVE: 55 yo F with pmhx pf heroin use, current smoker, htn, depression BIBA for seizure witnessed by her . Also, noted nausea, vomiting, and diarrhea. States she has associated dry cough. Notes she started using heroin 2 years ago. No fevers or chills. States she last used herion 2 days ago. No other substances she uses. States she has cough with productive white sputum, which she attributes to her smoking. ED Course: Pt. had wheezing as per ED. Given Nebs/Solu-Medrol OBJECTIVE: Physical: VS: Vital Signs Period Temp Pulse Resp BP Sys/Perdue Pulse Ox Last 24 Hr 98.2 F 90 20 120/87 95 GEN: NAD, Resting in bed, AA0X2 HEENT: NCAT, PERRL, Throat without erythema or exudates CARD: RRR S1, S2 RESP: CTAB ABD: BSx4, NTD to palpation EXT: - C/C/E CBCD WBC 11.5 K/mm3 (4.0-10.0) H D 04/20/17 22:40 RBC 4.92 M/mm3 (3.60-5.2) D 04/20/17 22:40 Hgb 14.8 GM/dL (10.7-15.3) D 04/20/17 22:40 Hct 43.4 % (32.4-45.2) D 04/20/17 22:40 MCV 88.2 fl (80-96) 04/20/17 22:40 MCHC 34.2 g/dl (32.0-36.0) 04/20/17 22:40 RDW 13.7 % (11.6-15.6) 04/20/17 22:40 Plt Count 322 K/MM3 (134-434) D 04/20/17 22:40 MPV 7.5 fl (7.5-11.1) D 04/20/17 22:40 CMP Sodium 144 mmol/L (136-145) 04/20/17 22:40 Potassium 3.8 mmol/L (3.5-5.1) 04/20/17 22:40 Chloride 109 mmol/L (98-107) H 04/20/17 22:40 Carbon Dioxide 23 mmol/L (21-32) 04/20/17 22:40 Anion Gap 12 (8-16) 04/20/17 22:40 BUN 9 mg/dL (7-18) 04/20/17 22:40 Creatinine 0.7 mg/dL (0.55-1.02) 04/20/17 22:40 Creat Clearance w eGFR > 60 (>60) 04/20/17 22:40 Random Glucose 93 mg/dL (74-106) 04/20/17 22:40 Calcium 9.1 mg/dL (8.5-10.1) 04/20/17 22:40 Total Bilirubin 0.4 mg/dL (0.2-1.0) D 04/20/17 22:40 AST 24 U/L (15-37) 04/20/17 22:40 ALT 28 U/L (12-78) 04/20/17 22:40 Alkaline Phosphatase 90 U/L (45-117) 04/20/17 22:40 Total Protein 8.0 g/dl (6.4-8.2) 04/20/17 22:40 Albumin 3.9 g/dl (3.4-5.0) 04/20/17 22:40 CARDIAC ENZYMES Creatine Kinase 159 IU/L (26-192) 04/20/17 22:40 Troponin I 0.11 ng/ml (0.00-0.05) H 04/20/17 22:40 CXR: No acute process Urine Test Results Urine Color Straw 04/21/17 01:20 Urine Appearance Clear 04/21/17 01:20 Urine pH 7.0 (5.0-8.0) 04/21/17 01:20 Ur Specific [place] 1.011 (1.001-1.035) 04/21/17 01:20 Urine Protein Negative (NEGATIVE) 04/21/17 01:20 Urine Glucose (UA) Negative (NEGATIVE) 04/21/17 01:20 Urine Ketones Trace (NEGATIVE) H 04/21/17 01:20 Urine Blood Negative (NEGATIVE) 04/21/17 01:20 Urine Nitrite Negative (NEGATIVE) 04/21/17 01:20 Urine Bilirubin Negative (NEGATIVE) 04/21/17 01:20 Ur Leukocyte Esterase Negative (NEGATIVE) 04/21/17 01:20 Ambulatory Orders Valsartan 40 mg PO DAILY 08/04/15 Naltrexone Microspheres [Vivitrol] 380 mg IM MONTHLY 03/02/17 Sertraline HCl [Zoloft] 100 mg PO DAILY 03/02/17 EKG: STACH 103, IRBB CT HEAD- Negatie ASSESSMENT AND PLAN: 55 yo F with pmhx pf heroin use, htn, depression BIBA for seizure witnessed by her , being admitted for seizure and asthma exacerbation 1.) Acute Exacerbation of Asthma - Now improved - Nebs prn - Mg2+ - Prednisone 60mg in am - PEFR 2.) Seizure - Percautions - CT HEAD wo Con - Not on any AEDs - Neuro consult 3.) Substance abuse - On Naloxone - Detox consult 4.) HTN - C/W Valsartan 5.) Depression - C/W Zoloft- if QtC ok 6.) Troponin Elevation - Most likely Demand - Trend Trop/EKG - Cardio if continues to increase 7.) Dvt PPx - Ambulate Place in Obs-Tele
--- NOTE | 2017-04-21 02:16 | HP ---
CHIEF COMPLAINT: seizure PCP: HISTORY OF PRESENT ILLNESS: 57 y/o F with PMH heroin use, HTN, depression, ?COPD/asthma, who was BIBEMS after she had a seizure this evening. As per pt, her seizure was witnessed by her , however she is unable to give further details on the event. She is unsure whether she had LOC, head trauma, tongue biting, aura, or tonic-clonic movements. However, pt does endorse urinary incontinence during event, as well as confusion preceding it. States that she had been using one bag of heroin daily over the past five months, and over the last two days, stopped immediately. She believes this precipitated the seizure, as she has "not had seizures in the past." During this time, pt also endorses productive cough, wheezing, as well as nausea and multiple episodes of NBNB emesis, which have resolved in the ED with zofran tx. She is interested in following with detox if it is offered. Denies fever, chills, diaphoresis, anxiety, or changes in bowel function. ER course was notable for: (1) Zofran (2) Prednisone 60mg PO x 1 (3) Duonebs (4) utox (+) opiates (5) Head CT non con (-) Recent Travel: none PAST MEDICAL HISTORY: as above PAST SURGICAL HISTORY: denies Social History: worked as a lunch lady in past. lost her son in an MVA two years ago Smoking: current 40 pack yr smoker, would like to quit Alcohol: denies Drugs: one bag of heroin daily for the past 5 months, last use two days ago Family History: mother - gallstones, passed during pancreatic surgery age 49. father - passed from major [place] age 53. Allergies No Known Allergies Allergy (Verified 04/20/17 22:20) HOME MEDICATIONS: Home Medications Medication Instructions Recorded Valsartan 40 mg PO DAILY 08/04/15 Naltrexone Microspheres [Vivitrol] 380 mg IM MONTHLY 03/02/17 Sertraline HCl [Zoloft] 100 mg PO DAILY 03/02/17 REVIEW OF SYSTEMS CONSTITUTIONAL: Absent: fever, chills, diaphoresis, generalized weakness, malaise, loss of appetite, weight change HEENT: Absent: rhinorrhea, nasal congestion, throat pain, throat swelling, difficulty swallowing, mouth swelling, ear pain, eye pain, visual changes CARDIOVASCULAR: Absent: chest pain, syncope, palpitations, irregular heart rate, lightheadedness , peripheral edema RESPIRATORY: +cough, wheezing Absent: cough, shortness of breath, dyspnea with exertion, orthopnea, wheezing, stridor, hemoptysis GASTROINTESTINAL:+N/V Absent: abdominal pain, abdominal distension, nausea, vomiting, diarrhea, constipation, melena, hematochezia GENITOURINARY: Absent: dysuria, frequency, urgency, hesitancy, hematuria, flank pain, genital pain MUSCULOSKELETAL: Absent: myalgia, arthralgia, joint swelling, back pain, neck pain SKIN: Absent: rash, itching, pallor HEMATOLOGIC/IMMUNOLOGIC: Absent: easy bleeding, easy bruising, lymphadenopathy, frequent infections ENDOCRINE: Absent: unexplained weight gain, unexplained weight loss, heat intolerance, cold intolerance NEUROLOGIC: +REINA Absent: headache, focal weakness or paresthesias, dizziness, unsteady gait, seizure, mental status changes, bladder or bowel incontinence PSYCHIATRIC: Absent: anxiety, depression, suicidal or homicidal ideation, hallucinations. PHYSICAL EXAMINATION Vital Signs - 24 hr 04/20/17 22:21 Temperature Pulse Rate 90 Respiratory 20 Rate Blood Pressure 120/87 O2 Sat by Pulse 95 Oximetry (%) GENERAL: Pt is resting comfortably. Awake, alert, and fully oriented, in no acute distress. HEAD: Normal with no signs of trauma. EYES: Pupils equal, round and reactive to light, extraocular movements intact, sclera anicteric, conjunctiva clear. EARS, NOSE, THROAT: Ears normal, nares patent, oropharynx clear without exudates. Moist mucous membranes. NECK: Normal range of motion, supple LUNGS: Breath sounds equal, clear to auscultation bilaterally. No wheezes, and no crackles. No accessory muscle use. HEART: Tachycardic rate and rhythm, normal S1 and S2 without murmur, rub or gallop. ABDOMEN: Soft, nontender, not distended, normoactive bowel sounds, no guarding, no rebound, no masses LOWER EXTREMITIES: 2+ posterior tibial pulses, warm, well-perfused. No calf tenderness. NEUROLOGICAL: Cranial nerves II-XII intact. Laboratory Results 04/20/17 04/20/17 04/21/17 22:40 22:40 01:20 WBC 11.5 H D Hgb 14.8 D Hct 43.4 D Plt Count 322 D Sodium 144 Potassium 3.8 Chloride 109 H BUN 9 Creatinine 0.7 AST 24 ALT 28 CK-MB (CK-2) 2.046 Troponin I 0.11 H Opiates Screen Positive Tests -EKG: incomplete RBBB, vent rate 103 bpm, NH 122 ms, QRS 94ms, Qtc 442ms -CXR: without evidence of infiltrates or pathology -Head CT non con: (-), official report pending ASSESSMENT/PLAN: 57 y/o F with PMH heroin use, HTN, depression, ?COPD/asthma, who was BIBEMS after she had a seizure this evening. Pt admitted to tele-obs for new onset seizure, opiate withdrawal and r/o ACS. #New onset seizure -Possible 2/2 opiate withdrawal - last use two days ago -Neuro consult: Dr. Garcia -CT head non con (-) -Seizure precautions - padding, implemented #Asthma/COPD Exacerbation -Currently without wheezing on exam -Duonebs PRN -Mg sulfate 2gm -To receive prednisone 60mg PO tomorrow #Acute opiate withdrawal - last use 2 days ago -Tx symptomatically, Zofran as needed. Qtc 442ms -Detox consult: Dr. Celis -Has been using naloxone #R/o ACS- likely demand -Trend trops, initial 0.11. -Initial EKG without sig changes - incomplete RBBB -Telemetry monitoring -Continue to follow EKG #leukocytosis - likely reactive, 2/2 seizure -Initial white count 11.5 -Will follow AM labs #HTN-currently controlled -Continue valsartan 40mg PO qd #Depression -Continue Zoloft 100 mg PO qd -Monitor Qtc #F/E/N IVF not needed at this time Monitor electrolytes Sodium-controlled diet #PPX DVT: early ambulation, SCD's #Dispo Tele obs Visit type - Emergency Visit Emergency Visit: Yes ED Registration Date: 04/21/17 Care time: The patient presented to the Emergency Department on the above date and was hospitalized for further evaluation of their emergent condition. - New Patient This patient is new to me today: Yes Date on this admission: 04/21/17 - Critical Care Critical Care patient: No Hospitalist Screening - Colonoscopy Questionnaire Colonoscopy Questionnaire: Colonoscopy Questionnaire - Patient: 50 - 75 years old and never had a screening colonoscopy: Unknown History of colon or rectal polyps, or CA: Unknown History of IBD, Crohn's disease or UC: Unknown History of abdominal radiation therapy as a child: Unknown - Relative: 1 with colon or rectal CA, or polyps at age 60 or younger: Unknown Colon or rectal CA diagnosed at age 45 or younger: Unknown Multiple relatives with colon or rectal CA: Unknown - Outcome: Screening Result: Negative Screen
[2017-04-21] MEDS ORDERED: ONDANSETRON 4 MG/2 ML VIAL IVPUSH PRN (02:23)
[2017-04-21] MEDS ORDERED: predniSONE 20 MG TABLET (UD) ONE (02:24)
[2017-04-21] MEDS ORDERED: ALBUTEROL SO4 2.5/IPRATROPIUM 0.5 INH SOL 3 ML VIAL.NEB. NEB PRN (03:24)
[2017-04-21] MEDS ORDERED: MAGNESIUM 2GM/50ML STERILE WATER IVPB IVPB ONE (03:25)
[2017-04-21 03:57] VITALS: BMI 30.2
[2017-04-21] MEDS ORDERED: HEPARIN NA (PORCINE) 5,000 UNITS/ML 1ML VIAL SQ SCH (06:00)
[2017-04-21 06:32] LABS: BASO % 0.1 % (0-2.0); EOS % 0.1 % (0-4.5); HEMATOCRIT 40.3 % (32.4-45.2); HEMOGLOBIN 14.2 GM/dL (10.7-15.3); LYMPH % 10.3 % (8-40); MCHC 35.1 g/dl (32.0-36.0); MEAN CELL VOLUME 88.2 fl (80-96); MEAN PLT VOLUME 7.7 fl (7.5-11.1); MONO % 1.2 % (3.8-10.2); NEUT % 88.3 % (42.8-82.8); PLATELET COUNT 325 K/MM3 (134-434); RBC 4.57 M/mm3 (3.60-5.2); RDW 13.6 % (11.6-15.6); WHITE BLOOD COUNT 10.9 K/mm3 (4.0-10.0)
[2017-04-21 07:09] LABS: ANION GAP 11 (8-16); BLOOD UREA NITROGEN 8 mg/dL (7-18); CALCIUM 8.4 mg/dL (8.5-10.1); CHLORIDE 108 mmol/L (98-107); CO2 22 mmol/L (21-32); CREATININE 0.7 mg/dL (0.55-1.02); GLUCOSE,RANDOM 109 mg/dL (74-106); MAGNESIUM 3.2 mg/dL (1.8-2.4); PHOSPHOROUS 1.7 mg/dL (2.5-4.9); SODIUM 141 mmol/L (136-145)
--- NOTE | 2017-04-21 09:13 | CON.NEURO ---
Consult - History of Present Illness History of Present Illness: 57 y/o F with PMH heroin use, HTN, depression, ?COPD/asthma, who was BIBEMS after she had a seizure this evening. As per pt, her seizure was witnessed by her , however she is unable to give further details on the event. She is unsure whether she had LOC, head trauma, tongue biting, aura, or tonic-clonic movements. However, pt does endorse urinary incontinence during event, as well as confusion preceding it. States that she had been using one bag of heroin daily over the past five months, and over the last two days, stopped immediately. She believes this precipitated the seizure, as she has "not had seizures in the past." During this time, pt also endorses productive cough, wheezing, as well as nausea and multiple episodes of NBNB emesis, which have resolved in the ED with marty ramos. She is interested in following states had a seizure about yr ago; admits to using heroine x 2 yrs,since her son ; she tell me she using drugs at the time of this seizure, CT HD Impression. No evidence of acute intracranial hemorrhage, edema, midline shift, mass effect, or skull fracture. No CT evidence of acute territorial ischemic changes. Nasal septal perforation is noted. Differential diagnosis: septoplasty , cocaine abuse, exposure to chromium, granulomatous infection. - History Source History Provided By: Patient - Alcohol/Substance Use Hx Alcohol Use: Yes - Smoking History Smoking history: Current every day smoker Have you smoked in the past 12 months: Yes Aproximately how many cigarettes per day: 20 If you are a former smoker, when did you quit?: 04/17/2017 Home Medications - Allergies Allergies/Adverse Reactions: Allergies Allergy/AdvReac Type Severity Reaction Status Date / Time No Known Allergies Allergy Verified 04/20/17 22:20 - Home Medications Home Medications: Ambulatory Orders Valsartan 40 mg PO DAILY 08/04/15 Naltrexone Microspheres [Vivitrol] 380 mg IM MONTHLY 03/02/17 Sertraline HCl [Zoloft] 100 mg PO DAILY 03/02/17 Physical Exam-Neuro Vital Signs: Vital Signs Temperature 98.1 F 04/21/17 06:28 Pulse Rate 71 04/21/17 06:28 Respiratory Rate 18 04/21/17 06:28 Blood Pressure 126/59 04/21/17 06:28 O2 Sat by Pulse Oximetry (%) 95 04/21/17 03:44 Constitutional: Yes: Poor Hygeine Neck: Yes: WNL Labs: CBC, BMP 04/21/17 06:05 04/21/17 06:05 INR, PTT INR 1.04 (0.82-1.09) 04/20/17 22:40 - Neuro Exam Level Of Consciousness: Yes: Alert, Oriented to Person (EOMI, no facial, motor 5 /5, reflexes symmetric, nonfocal ) Imaging - Results Cat Scan: Report Reviewed, Image Reviewed Problem List - Problems (1) Opioid dependence with withdrawal Code(s): F11.23 - OPIOID DEPENDENCE WITH WITHDRAWAL (2) Seizure Code(s): R56.9 - UNSPECIFIED CONVULSIONS (3) Nicotine dependence Code(s): F17.200 - NICOTINE DEPENDENCE, UNSPECIFIED, UNCOMPLICATED Qualifiers: Nicotine product type: cigarettes Substance use status: uncomplicated Qualified Code(s): F17.210 - Nicotine dependence, cigarettes, uncomplicated Assessment/Plan Heroine use with seizure either from drug use or withdrawal CT HD (-) back to baseline, exam nonfocal will not treat with AEDS addiction medicine -- she would like to rehab Dr Garcia
--- NOTE | 2017-04-21 09:14 | CONSULT ---
Consult Detox [facility] Reason for Current Admission/Consult: substance use Referred by:: elba masters MD - History History of Present Illness: Rody Dale, 1960 Search Date: 04/21/2017 11:53:03 AM The Drug Utilization Report below displays all of the controlled substance prescriptions, if any, that your patient has filled in the last twelve months. The information displayed on this report is compiled from pharmacy submissions to the Department, and accurately reflects the information as submitted by the pharmacies. This report was requested by: Jesse Celis | Reference #: [id number] There are no results for the search terms that you entered. 57 y/o F w PMH opioid use disorder, benzoidiazepine dependence, HTN, depression , ?COPD/asthma, admitted for new onset seizure. Seizure was witnessed by her - pt does endorse urinary incontinence during event, as well as confusion preceding it. States that she had been using one bag of heroin daily over the past five months, and over the last two days stopped. 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 utox +ve opiates only, neg benzodiazepiens although she has been admitted to [facility] in past for heroin and benzodiazepine detox. Smoking history: Current every day smoker Have you smoked in the past 12 months: Yes Aproximately how many cigarettes per day: 20 If you are a former smoker, when did you quit?: 04/17/2017 - History Source History Provided By: Patient, Medical Record, Caregiver Limitations to Obtaining History: No Limitations - Alcohol/Substance Use Hx Alcohol Use: No Hx Substance Use: No Hx Substance Use Treatment: No - Current Drug/Alcohol Use Heroin Route: Inhalation Frequency: Daily Amount used: 1 bag Date of Last Use: 04/19/17 - Significant Medical Findings: 57 yo f admitted for neew onset seizures she thinks are due to sudden cessation of heroin use, urine opiate +ve requesting methadone detox as offered, denies all other illicit or licit drug use,, denies alcohol use, has had detox at [facility] in past for benzo and aheorin use.,. COWS - Scale Resting Pulse: 0= DC 80 or Below Sweatin= Chills/Flushing Restless Observation: 0= Sits Still Pupil Size: 0= Normal to Room Light Bone or Joint Aches: 1= Mild Discomfort Runny Nose/ Eye Tearin= Nasal Congestion GI Upset > 30mins: 2= Nausea/Diarrhea Tremor Observation: 1= Tremor Maiden, Not Seen Yawning Observation: 0= None Anxiety or Irritability: 2=Irritable/Anxious Goose Flesh Skin: 0=Smooth Skin COWS Score: 8 Assessment Plan - Diagnosis (1) Depression Status: Acute Qualifiers: Depression Type: unspecified Qualified Code(s): F32.9 - Major depressive disorder, single episode, unspecified (2) Elevated troponin Status: Acute (3) Opioid dependence with withdrawal Status: Acute (4) Seizure Status: Acute (5) Shortness of breath Status: Acute (6) Uncomplicated sedative, hypnotic or anxiolytic withdrawal Status: Acute (7) Wheezing Status: Acute (8) Drug-induced mood disorder Status: Chronic (9) Essential hypertension Status: Chronic (10) Nicotine dependence Status: Chronic Qualifiers: Nicotine product type: cigarettes Substance use status: uncomplicated Qualified Code(s): F17.210 - Nicotine dependence, cigarettes, uncomplicated (11) Weight loss Status: Chronic - Plan Plan: chart imaging, labs reviewed, patient examined and hsitory taken. discussed care with medical team. Recommend: 1. fluids, vitamins 2. start methadone doetox from heroin, can have valium 10mg q4h for anxiety and withdrawal sx 3. may transfer to [facility] to complete detox when medically cleared or for rehab. 4. appears to be on injectable naltrexone as per chart but unable to ascertain when last dose or who provider was in which case she should return treatment with vivitrol if preferred Jesse Celis MD [phone] - Medication Detox Regimen/Protocol: Methadone
[2017-04-21] MEDS: SERTRALINE HCL 50 MG TABLET (FP) PO SCH (09:42)
[2017-04-21] MEDS: VALSARTAN 40 MG TABLET (FP) PO SCH (09:42)
[2017-04-21] MEDS: PRENATAL VITAMINS W/ FOLIC ACID TABLET (FP) PO SCH ×2 (09:44→13:14)
--- NOTE | 2017-04-21 10:50 | EKG ---
Test Reason : Blood Pressure : / mmHG Vent. Rate : 103 BPM Atrial Rate : 103 BPM P-R Int : 122 ms QRS Dur : 094 ms QT Int : 338 ms P-R-T Axes : 042 042 056 degrees QTc Int : 442 ms SINUS TACHYCARDIA INCOMPLETE RIGHT BUNDLE BRANCH BLOCK BORDERLINE ECG WHEN COMPARED WITH ECG OF 02-MAR-2017 18:56, T WAVE INVERSION NOW EVIDENT IN ANTERIOR LEADS Confirmed by FELTON COOPER, RANDALL ([id number]) on 04/21/2017 10:49:52 AM Referred By: Confirmed By:RANDALL YA MD
--- NOTE | 2017-04-21 10:57 | PN ---
Progress Note (short form) - Note Progress Note: PATIENT SEEN AND EXAMINED CHART AND EVENTS REVIEWED NO SEIZURE MEDS AT THIS TIME WILL NEED DETOX
[2017-04-21] MEDS ORDERED: diazePAM 5 MG TABLET PO PRN (11:55)
[2017-04-21] MEDS ORDERED: METHADONE HCL 10 MG TABLET PO ONE ×2 (11:55→23:00)
--- NOTE | 2017-04-21 12:03 | EKG ---
Test Reason : Blood Pressure : / mmHG Vent. Rate : 080 BPM Atrial Rate : 080 BPM P-R Int : 134 ms QRS Dur : 094 ms QT Int : 410 ms P-R-T Axes : 037 061 050 degrees QTc Int : 472 ms NORMAL SINUS RHYTHM NORMAL ECG WHEN COMPARED WITH ECG OF 20-APR-2017 22:32, T WAVE INVERSION NO LONGER EVIDENT IN ANTERIOR LEADS Confirmed by FELTON COOPER, RANDALL ([id number]) on 04/21/2017 12:03:16 PM Referred By: STEPHEN JEREZ Confirmed By:RANDALL YA MD
--- NOTE | 2017-04-21 16:08 | CON.CARD ---
Consult Consult Specialty:: Cardiology Referred by:: Dr. Herrera and Dr. Jenkins Reason for Consultation:: Elevated troponin. - History of Present Illness History of Present Illness: 57 year-old woman, active heroin use, with a PMHx of HTN, siezure, depression, COPD/asthma admitted 04/20/2017 with seizure. The patient had seizure which was witnessed by her . She had urinary incontinence during event, as well as confusion preceding it. She also endorses productive cough, wheezing, as well as nausea and multiple episodes of emesis, which have resolved in the ED with Zofran. She was seen by neurologist. CT head was unremarkable. Mildly elevated troponin (0.11 -> 0.59 -> 0.39) was noted. ECG is normal without ischemic changes. Echocardiogram 04/21/2017 showed normal LV size and function. No regional wall motion abnormality noted. Patient denies chest pain, SOB, palpitation. She has good baseline exercise tolerance without exertional chest pain or SOB. - History Source History Provided By: Patient Limitations to Obtaining History: No Limitations - Past Medical History PRODUCTION LINE TECHNICIAN: Yes: Seizure Cardio/Vascular: Yes: HTN Pulmonary: Yes: Asthma, COPD - Alcohol/Substance Use Hx Alcohol Use: Yes - Smoking History Smoking history: Current every day smoker Have you smoked in the past 12 months: Yes Aproximately how many cigarettes per day: 20 If you are a former smoker, when did you quit?: 04/17/2017 Home Medications - Allergies Allergies/Adverse Reactions: Allergies Allergy/AdvReac Type Severity Reaction Status Date / Time No Known Allergies Allergy Verified 04/20/17 22:20 - Home Medications Home Medications: Ambulatory Orders Valsartan 40 mg PO DAILY 08/04/15 Naltrexone Microspheres [Vivitrol] 380 mg IM MONTHLY 03/02/17 Sertraline HCl [Zoloft] 100 mg PO DAILY 03/02/17 Review of Systems - Review of Systems Constitutional: reports: No Symptoms Eyes: reports: No Symptoms HENT: reports: No Symptoms Neck: reports: No Symptoms Cardiovascular: reports: No Symptoms Respiratory: reports: Cough Gastrointestinal: reports: No Symptoms Genitourinary: reports: Incontinence Breasts: reports: No Symptoms Reported Musculoskeletal: reports: No Symptoms Integumentary: reports: No Symptoms Neurological: reports: Confusion, Seizure Endocrine: reports: No Symptoms Hematology/Lymphatic: reports: No Symptoms Psychiatric: reports: Depression Vital Signs: Vital Signs Temperature 98.4 F 04/21/17 14:00 Pulse Rate 82 04/21/17 14:00 Respiratory Rate 18 04/21/17 06:28 Blood Pressure 129/77 04/21/17 14:00 O2 Sat by Pulse Oximetry (%) 95 04/21/17 03:44 Constitutional: Yes: Well Nourished, No Distress, Calm Eyes: Yes: WNL, Conjunctiva Clear, EOM Intact HENT: Yes: WNL, Atraumatic, Normocephalic Neck: Yes: WNL, Supple, Trachea Midline Respiratory: Yes: WNL, Regular, CTA Bilaterally Gastrointestinal: Yes: WNL, Normal Bowel Sounds Renal/: Yes: WNL Cardiovascular: Yes: WNL, Regular Rate and Rhythm JVD: No Heart Sounds: Yes: S1, S2 Musculoskeletal: Yes: WNL Extremities: Yes: WNL Edema: No Peripheral Pulses WNL: Yes Integumentary: Yes: WNL Neurological: Yes: WNL, Alert, Oriented ...Motor Strength: WNL Psychiatric: Yes: WNL, Alert, Oriented - Other Data Labs, Other Data: CBC, BMP 04/21/17 06:05 04/21/17 06:05 INR, PTT INR 1.04 (0.82-1.09) 04/20/17 22:40 Troponin, BNP 04/20/17 04/21/17 04/21/17 22:40 06:05 13:05 Troponin I 0.11 H 0.59 H 0.39 H Troponin, BNP 04/20/17 04/21/17 04/21/17 22:40 06:05 13:05 Troponin I 0.11 H 0.59 H 0.39 H Sinus rhythm. Normal ECG. Echo: Image Reviewed (Normal LV and RV. No segmental wall motion abnormality.) Ejection Fraction %: LVEF > or = 40 % Assessment/Plan 57 year-old woman, active heroin use, with a PMHx of HTN, siezure, depression, COPD/asthma admitted 04/20/2017 with seizure. She was seen by neurologist. CT head was unremarkable. Mildly elevated troponin (0.11 -> 0.59 -> 0.39) was noted. ECG is normal without ischemic changes. Echocardiogram 04/21/2017 showed normal LV size and function. No regional wall motion abnormality noted. Patient denies chest pain, SOB, palpitation. She has good baseline exercise tolerance without exertional chest pain or SOB. It is likely not acute coronary syndrome, 1) Repeat troponin in the morning. 2) Start aspirin 81 mg daily. 3) No further cardiac test recommended at this time.
[2017-04-21] MEDS ORDERED: THIAMINE HCL 100 MG TABLET (FP) PO SCH (22:00)
[2017-04-21] MEDS ORDERED: ZOLPIDEM TARTRATE 5 MG TABLET PO PRN (22:00)
[2017-04-22 06:07] VITALS: TEMP 97.8
[2017-04-22 06:46] LABS: HEMATOCRIT 40.2 % (32.4-45.2); HEMOGLOBIN 13.6 GM/dL (10.7-15.3); MCH 30.1 pg (25.7-33.7); MCHC 33.9 g/dl (32.0-36.0); MEAN PLT VOLUME 7.7 fl (7.5-11.1); PLATELET COUNT 287 K/MM3 (134-434); RBC 4.52 M/mm3 (3.60-5.2); RDW 13.5 % (11.6-15.6); WHITE BLOOD COUNT 12.7 K/mm3 (4.0-10.0)
[2017-04-22 07:12] LABS: CHLORIDE 107 mmol/L (98-107); POTASSIUM 3.8 mmol/L (3.5-5.1); SODIUM 143 mmol/L (136-145)
[2017-04-22 07:20] LABS: ANION GAP 13 (8-16); BLOOD UREA NITROGEN 12 mg/dL (7-18); CALCIUM 8.4 mg/dL (8.5-10.1); CO2 23 mmol/L (21-32); CREATININE 0.7 mg/dL (0.55-1.02); GLUCOSE,RANDOM 80 mg/dL (74-106); MAGNESIUM 2.5 mg/dL (1.8-2.4)
[2017-04-22 08:40] VITALS: BP 116/64; PULSE 60
[2017-04-22] MEDS ORDERED: PT OWN MED DRAWER 7, Y5N ONE (09:46)
[2017-04-22] MEDS ORDERED: METHADONE HCL 10 MG TABLET PO ONE (10:00)
[2017-04-22] MEDS: SERTRALINE HCL 50 MG TABLET (FP) PO SCH (10:16)
[2017-04-22] MEDS: PRENATAL VITAMINS W/ FOLIC ACID TABLET (FP) PO SCH (10:16)
[2017-04-22] MEDS: VALSARTAN 40 MG TABLET (FP) PO SCH (10:17)
--- NOTE | 2017-04-22 11:35 | DS ---
Physical Examination Vital Signs: Vital Signs Temperature 97.8 F 04/22/17 08:39 Pulse Rate 60 04/22/17 08:39 Respiratory Rate 18 04/22/17 08:39 Blood Pressure 116/64 04/22/17 08:39 O2 Sat by Pulse Oximetry (%) 92 L 04/22/17 08:40 Findings/Remarks: AWAKE ALERT WILL SEE ME WEEKLY DENIES SUICIDAL OR HOMICIDAL THOUGHTS AND DENIES CHEST PAIN OR DYSPNEA DEPRESSED ABOUT HER SON'S Constitutional: Yes: Mild Distress Eyes: Yes: WNL HENT: Yes: WNL Neck: Yes: WNL Cardiovascular: Yes: WNL Respiratory: Yes: WNL Gastrointestinal: Yes: WNL Renal/: Yes: WNL Musculoskeletal: Yes: WNL Extremities: Yes: WNL Edema: No Peripheral Pulses WNL: Yes Integumentary: Yes: WNL Wound/Incision: Yes: Clean/Dry Neurological: Yes: WNL ...Motor Strength: WNL Psychiatric: Yes: WNL Labs: CBC, BMP 04/22/17 06:15 04/22/17 06:15 Discharge Summary Reason For Visit: SEIZURE WHEEZING Current Active Problems Elevated troponin (Acute) Opioid dependence with withdrawal (Acute) Seizure (Acute) Wheezing (Acute) Nicotine dependence (Chronic) Procedures: Principal: NEURO WORKUP Hospital Course: ADMITTED FOR SEIZURE HEROIN INDUCED, DEPRESSION, ELEVATED TROPONINS WORKED UP CARDIAC [facility] NEUROLOGY CLEARED AND TREAT FOR DEPRESSION, AND ANXIETY Condition: Improved - Instructions Diet, Activity, Other Instructions: SEE DR JEREZ WEEKLY PSYCHIATRY CONSULT DR FREED GIVEN OUT PATIENT IF CHEST PAIN RETURNS COME BACK TO ER Referrals: Radha Zuniga [Primary Care Provider] - Disposition: HOME - Home Medications Comprehensive Discharge Medication List: Ambulatory Orders Valsartan 40 mg PO DAILY 08/04/15 Naltrexone Microspheres [Vivitrol] 380 mg IM MONTHLY 03/02/17 Albuterol 2.5/Ipratropium 0.5 [Duoneb -] 1 amp NEB Q4H PRN #120 amp 04/22/17 Vitamins (Sjr) - 1 tab PO DAILY #30 tablet 04/22/17 Quetiapine Fumarate [Seroquel -] 25 mg PO HS #30 tablet 04/22/17 Sertraline HCl [Zoloft] 200 mg PO DAILY #30 tablet 04/22/17 Thiamine HCl [Vitamin B1 -] 100 mg PO HS #30 tablet 04/22/17 Valsartan [Diovan] 40 mg PO DAILY #30 tablet 04/22/17 Zolpidem Tartrate [Ambien] 10 mg PO HS PRN tablet MDD 1 04/22/17
[2017-04-23] MEDS ORDERED: METHADONE HCL 5 MG TABLET PO ONE (10:00)
[2017-04-24] MEDS ORDERED: METHADONE HCL 5 MG TABLET PO ONE (10:00)
[2017-04-25] MEDS ORDERED: METHADONE HCL 10 MG TABLET PO ONE (10:00)
[2017-04-26] MEDS ORDERED: METHADONE HCL 5 MG TABLET PO ONE (06:00)
== END 2017-04-22 11:58 | disposition home or self-care (01) ==
LOC: JER 22:12 → INTOOBSV 04-21 02:18 → UNDOADMOB 04-21 02:18 → JERBED 04-21 02:18 → UNDOADMIN 04-21 02:26 → JERBED 04-21 02:26 → J4W 04-21 04:08 → JERBED 04-21 04:08 → J4W 04-21 04:08
PROVIDERS: ADMIT Internal Medicine; ATTEND Family Medicine
PROC: 3E033GC Introduction of Other Therapeutic Substance into Peripheral Vein, Percutaneous Approach (ICD-10-PCS; principal; 2017-04-21)
PROC: 3E0337Z Introduction of Electrolytic and Water Balance Substance into Peripheral Vein, Percutaneous Approach (ICD-10-PCS; 2017-04-21)
PROC: 3E0F7GC Introduction of Other Therapeutic Substance into Respiratory Tract, Via Natural or Artificial Opening (ICD-10-PCS; 2017-04-21)
DX: G40.89 Other seizures (principal); J45.901 Unspecified asthma with (acute) exacerbation; F11.23 Opioid dependence with withdrawal; R06.2 Wheezing; R77.8 Other specified abnormalities of plasma proteins; F17.210 Nicotine dependence, cigarettes, uncomplicated; I10 Essential (primary) hypertension; F32.9 Major depressive disorder, single episode, unspecified; D72.829 Elevated white blood cell count, unspecified; F13.230 Sedative, hypnotic or anxiolytic dependence with withdrawal, uncomplicated; R06.02 Shortness of breath; F19.24 Other psychoactive substance dependence with psychoactive substance-induced mood disorder; Z87.898 Personal history of other specified conditions
CPT/HCPCS: 36415; 70450-TC; 71045-TC-FY; 80048; 80053; 80307; 81003; 82550; 82553; 83735; 84100; 84484; 85025; 85027; 85610; 93005; 93010; 93306-TC; 94640; 96361; 96374; 99285-25; G0378; J7030; J7620

== ENCOUNTER 2017-05-27 18:35 | Inpatient (IN) | payer OTHER ==
[2017-05-27 19:42] VITALS: BMI 29.0
--- NOTE | 2017-05-27 20:39 | HP ---
COWS - Scale Resting Pulse: 0= [place] 80 or Below Sweatin=Flushed/Facial Moisture Restless Observation: 0= Sits Still Pupil Size: 0= Normal to Room Light Bone or Joint Aches: 4=Acute Joint/Muscle Pain Runny Nose/ Eye Tearin= Nasal Congestion GI Upset > 30mins: 1= Stomach Cramp Tremor Observation: 2= Slight Tremor Visible Yawning Observation: 0= None Anxiety or Irritability: 4=Extreme Anxiety Goose Flesh Skin: 0=Smooth Skin COWS Score: 14 Admission [facility] Chief Complaint: Heroin withdrawal symptoms Allergies/Adverse Reactions: Allergies Allergy/AdvReac Type Severity Reaction Status Date / Time No Known Allergies Allergy Verified 05/27/17 19:35 History of Present Illness: 57 years old female with a 5 years history of heroin dependence is seeking admission to detox. Patient has been in previous detox and reports six months of sobriety. She has medical history of HTN, seizure, COPD and depression. She denies suicide attempt and suicidal ideation at this time. Exam Limitations: No Limitations - Ebola screening Have you traveled outside of the country in the last 21 days: No Have you had contact with anyone from an Ebola affected area: No Have you been sick,other than usual withdrawal symptoms: No Do you have a fever: No - Review of Systems Constitutional: Chills, Malaise, Night Sweats EENT: reports: Nose Congestion Respiratory: reports: Cough (related to cigarette smoking) Cardiac: reports: No Symptoms Reported GI: reports: Nausea, Poor Appetite, Poor Fluid Intake, Abdominal cramping : reports: No Symptoms Reported Musculoskeletal: reports: Muscle Pain, Neck Pain Integumentary: reports: Dryness, Flushing Neuro: reports: Headache, Tingling, Tremors Endocrine: reports: No Symptoms Reported Hematology: reports: No Symptoms Reported Psychiatric: reports: Anxious, Depressed Other Systems: Reviewed and Negative Patient History - Patient Medical History Hx Anemia: No Hx Asthma: No Hx Chronic Obstructive Pulmonary Disease (COPD): Yes (DUONEB) Hx Cancer: No Hx Cardiac Disorders: No Hx Congestive Heart Failure: No Hx Hypertension: Yes (VALSARTAN) Hx Hypercholesterolemia: No Hx Pacemaker: No HX Cerebrovascular Accident: No Hx Seizures: Yes (NOT ON ANY MEDICATION) Hx Dementia: No Hx Diabetes: No Hx Gastrointestinal Disorders: No Hx Liver Disease: No Hx Genitourinary Disorders: No Hx Sexually Transmitted Disorders: No Hx Renal Disease (ESRD): No Hx Thyroid Disease: No Hx Human Immunodeficiency Virus (HIV): No (NEGATIVE APRIL 2017) Hx Hepatitis C: No (NEGATIVE 2017) Hx Depression: Yes (ZOLOFT, SEROQUEL) Hx Suicide Attempt: No (DENIES SUICIDE ATTEMPT OR SUICIDAL IDEATION AT THIS TIME ) Hx Bipolar Disorder: No Hx Schizophrenia: No - Patient Surgical History Past Surgical History: No Hx Neurologic Surgery: No Hx Cataract Extraction: No Hx Cardiac Surgery: No Hx Lung Surgery: No Hx Breast Surgery: No Hx Breast Biopsy: No Hx Abdominal Surgery: No Hx Appendectomy: No Hx Cholecystectomy: No Hx Genitourinary Surgery: No Hx Section: No Hx Orthopedic Surgery: No Hx Hysterectomy: No Anesthesia Reaction: No - PPD History Previous Implant?: Yes Documented Results: Negative w/proof Implanted On Prior [facility] Admission?: Yes Date: 08/06/15 PPD to be Administered?: Yes - Reproductive History Patient is a Female of Child Bearing Age (11 -55 yrs old): Yes LMP comment: FIVE YEARS AGO Patient : No - Smoking Cessation Smoking history: Current every day smoker Have you smoked in the past 12 months: Yes Aproximately how many cigarettes per day: 10 Hx Chewing Tobacco Use: No Initiated information on smoking cessation: Yes 'Breaking Loose' booklet given: 05/27/17 - Substance & Tx. History Hx Alcohol Use: No Hx Substance Use: Yes Substance Use Type: Heroin Hx Substance Use Treatment: Yes ([facility]) - Substances Abused Heroin Route: Inhalation Frequency: Daily Amount used: 3 bags Age of first use: 53 Date of Last Use: 05/27/17 Family Disease History - Family Disease History Family History: Denies Admission Physical Exam S - Vital Signs Vital Signs: Vital Signs - 24 hr 05/27/17 05/27/17 19:26 19:40 Temperature 96.9 F L 96.9 F L Pulse Rate 75 75 Respiratory 18 18 Rate Blood Pressure 111/69 111/69 - Physical General Appearance: Yes: Moderate Distress, Tremorous, Irritable, Sweating, Anxious HEENTM: Yes: EOMI, Normal Voice Respiratory: Yes: Lungs Clear, Normal Breath Sounds, No Respiratory Distress Neck: Yes: No masses,lesions,Nodules, Supple, Trachea in good position Breast: Yes: Breast Exam Deferred Cardiology: Yes: Regular Rhythm, Regular Rate, S1, S2 Abdominal: Yes: Normal Bowel Sounds Back: Yes: Normal Inspection Musculoskeletal: Yes: Muscle Pain Extremities: Yes: Tremors Neurological: Yes: Alert, Normal Mood/Affect Integumentary: Yes: Dry Lymphatic: Yes: Within Normal Limits - Diagnostic (1) Depression Current Visit: Yes Status: Chronic Qualifiers: Depression Type: unspecified Qualified Code(s): F32.9 - Major depressive disorder, single episode, unspecified (2) Opioid dependence with withdrawal Current Visit: Yes Status: Chronic (3) Seizure Current Visit: Yes Status: Chronic (4) Uncomplicated sedative, hypnotic or anxiolytic withdrawal Current Visit: No Status: Acute (5) Essential hypertension Current Visit: No Status: Chronic (6) Nicotine dependence Current Visit: Yes Status: Chronic Qualifiers: Nicotine product type: cigarettes Substance use status: uncomplicated Qualified Code(s): F17.210 - Nicotine dependence, cigarettes, uncomplicated Cleared for Admission [facility] - Detox or Rehab [facility] Level of Care: Medically Managed Detox Regimen/Protocol: Methadone [facility] Breath Alcohol Content Breath Alcohol Content: 0 Urine Pregancy Test - Result Urine Test Results: Negative- NO Line Present Urine Drug Screen - Results Drug Screen Negative: No Urine Drug Screen Results: OPI-Opiates, TCA-Tricyclic Antidepress, OXY-Oxycodone
[2017-05-27] MEDS ORDERED: ACETAMINOPHEN 325 MG TABLET (FP) PO PRN (21:08)
[2017-05-27] MEDS ORDERED: MAGNESIUM HYDROX 2400MG/30ML ORAL SUSPENSION 30 ML CUP PO PRN (21:08)
[2017-05-27] MEDS ORDERED: P-EPHED 60MG/TRIPROLIDI 2.5MG TABLET PO PRN (21:08)
[2017-05-27] MEDS ORDERED: NICOTINE POLACRILEX 2 MG GUM BUC PRN (21:08)
[2017-05-27] MEDS ORDERED: MAG HYDROX/AL HYDROX/SIMETH 30 ML UNIT-DOSE CUP PO PRN (21:08)
[2017-05-27] MEDS ORDERED: METHADONE HCL 10 MG TABLET (FOR DETOX USE ONLY) PO ONE ×2 (21:08→23:00)
[2017-05-27] MEDS ORDERED: LOPERAMIDE HCL 2 MG CAPSULE PO PRN (21:08)
[2017-05-27] MEDS ORDERED: IBUPROFEN 400 MG TABLET (FP) PO PRN (21:08)
[2017-05-27] MEDS ORDERED: MAGNESIUM CITRATE 300 ML BOTTLE PO PRN (21:08)
[2017-05-27] MEDS ORDERED: MENTHOL/PHENOL 1 EACH UD MM PRN (21:08)
[2017-05-27] MEDS ORDERED: ALBUTEROL SO4 2.5/IPRATROPIUM 0.5 INH SOL 3 ML VIAL.NEB. NEB PRN (21:12)
[2017-05-27] MEDS: diazePAM 5 MG TABLET PO PRN (21:52)
[2017-05-27] MEDS ORDERED: MELATONIN 5 MG TABLETS PO PRN (22:00)
[2017-05-27] MEDS: THIAMINE HCL 100 MG TABLET (FP) PO SCH (22:56)
[2017-05-27 23:05] LABS: URINE APPEARANCE SLCLOUDY; URINE BILIRUBIN NEGATIVE (<2.0 mg/dL); URINE BLOOD NEGATIVE (NEGATIVE); URINE COLOR YELLOW; URINE GLUCOSE (UA) NEGATIVE (NEGATIVE); URINE KETONE NEGATIVE (NEGATIVE); URINE LEUK ESTERASE TRACE (NEGATIVE); URINE NITRITE NEGATIVE (NEGATIVE); URINE PROTEIN NEGATIVE (NEGATIVE); URINE UROBILINOGEN NEGATIVE mg/dL (0.2-1.0)
[2017-05-27 23:08] LABS: EPI CELLS MODERATE /HPF (FEW); URINE MUCUS RARE
[2017-05-28] MEDS: diazePAM 5 MG TABLET PO PRN ×2 (05:34→10:14)
--- NOTE | 2017-05-28 09:26 | CONSULT ---
[facility] Psychiatric Consult - Data Date of interview: 05/28/17 Admission source: [facility] Identifying data: Patient is a 57 year old [place] woman, mother of one (other son three years ago via car accident), employed, and living at home with and son. This is one of multiple admissions for patient. Pt. admitted to for opiate dependence. Substance Abuse History: Following information confirmed with Ms. Dale: Smoking Cessation. Smoking history: Current every day smoker. Have you smoked in the past 12 months: Yes. Aproximately how many cigarettes per day: 10. Hx Chewing Tobacco Use: No. Initiated information on smoking cessation: Yes. ' Breaking Loose' booklet given: 05/27/17. - Substance & Tx. History. Hx Alcohol Use: No. Hx Substance Use: Yes. Substance Use Type: Heroin. Hx Substance Use Treatment: Yes ([facility]). - Substances Abused. Heroin. Route: Inhalation. Frequency: Daily. Amount used: 3 bags. Age of first use: 53. Date of Last Use: 05/27/17 Medical History: Hypertension, seizures Psychiatric History: Pt. denies h/o psychiatric hospitalization, outpatient care and suicide attempt. Pt. is prescribed zoloft 100mg + Seroquel 25mg by her PCP. Patient's son three years ago in a motor vehicle accident. Patient begun to use heroin after the of her son and has not been successful in discontinuing her drug use. Pt. reports h/o depression. Reports difficulty waking up in the morning, amotivation, and poor appetite. Patient's protective factor are her and son. Pt. currently denies suicidal and homicidal ideation. Physical/Sexual Abuse/Trauma History: Denies. Mental Status Exam - Mental Status Exam Alert and Oriented to: Time, Place, Person Cognitive Function: Good Patient Appearance: Unkempt Mood: Sad, Euthymic Affect: Mood Congruent Patient Behavior: Crying (Pt. tearful when speaking of son. ), Appropriate, Cooperative Speech Pattern: Appropriate Voice Loudness: Normal Thought Process: Goal Oriented Thought Disorder: Not Present Hallucinations: Denies Suicidal Ideation: Denies Homicidal Ideation: Denies Insight/Judgement: Poor Sleep: Fair Appetite: Poor Muscle strength/Tone: Normal Gait/Station: Normal Psychiatric Findings - Problem List ([place] 1, 2,3) (1) MDD (major depressive disorder) Current Visit: Yes Status: Suspected (2) Opioid dependence with withdrawal Current Visit: Yes Status: Acute (3) Drug-induced mood disorder Current Visit: Yes Status: Acute - Initial Treatment Plan Initial Treatment Plan: Psychoeducation provided. Detoxification in progress. Zoloft 100mg PO daily + Seroquel 25mg qhs + Vistaril 25mg q4hr ordered. Benefits and side effects discussed. Verbal consent given. Will continue to monitor.
--- NOTE | 2017-05-28 09:59 | EKG ---
Test Reason : Blood Pressure : / mmHG Vent. Rate : 063 BPM Atrial Rate : 063 BPM P-R Int : 118 ms QRS Dur : 096 ms QT Int : 422 ms P-R-T Axes : 009 053 049 degrees QTc Int : 431 ms NORMAL SINUS RHYTHM INCOMPLETE RIGHT BUNDLE BRANCH BLOCK WHEN COMPARED WITH ECG OF 21-APR-2017 10:13, NONSPECIFIC T WAVE ABNORMALITY NOW EVIDENT IN ANTERIOR LEADS Confirmed by CHATO HOWARD MD ([id number]) on 05/28/2017 9:59:24 AM Referred By: Confirmed By:CHATO HOWARD MD
[2017-05-28] MEDS ORDERED: METHADONE HCL 10 MG TABLET (FOR DETOX USE ONLY) PO ONE (10:00)
--- NOTE | 2017-05-28 10:09 | PN ---
BHS COWS - Scale Resting Pulse: 1= [place] 81-100 Sweatin= Chills/Flushing Restless Observation: 1= Difficult to Sit Still Pupil Size: 1= Pupils >than Normal Bone or Joint Aches: 1= Mild Discomfort Runny Nose/ Eye Tearin= Nasal Congestion GI Upset > 30mins: 2= Nausea/Diarrhea Tremor Observation of Outstretched Hands: 1= Tremor [place], Not Seen Yawning Observation: 1= 1-2x During Session Anxiety or Irritability: 2=Irritable/Anxious Goose Flesh Skin: 0=Smooth Skin COWS Score: 12 BHS Progress Note (SOAP) Subjective: nausea, sweats, interrutped sleep, anxiety, tremors Objective: 05/28/17 10:08 Vital Signs - 24 hr 05/27/17 05/27/17 05/27/17 19:26 19:40 22:00 Temperature 96.9 F L 96.9 F L 97.2 F L Pulse Rate 75 75 66 Respiratory 18 18 18 Rate Blood Pressure 111/69 111/69 108/65 05/28/17 05/28/17 05/28/17 00:30 03:30 07:23 Temperature 97.7 F Pulse Rate 82 Respiratory 18 18 18 Rate Blood Pressure 106/72 Laboratory Tests 05/27/17 21:02 Urine Color Yellow Urine Appearance Slcloudy Urine pH 5.0 D Ur Specific [place] 1.015 Urine Protein Negative Urine Glucose (UA) Negative Urine Ketones Negative Urine Blood Negative Urine Nitrite Negative Urine Bilirubin Negative Urine Urobilinogen Negative Ur Leukocyte Esterase Trace Urine WBC (Auto) 3 Urine RBC (Auto) 1 Ur Epithelial Cells Moderate Urine Mucus Rare labs still pending Assessment: 05/28/17 10:09 withdrawal sx - cotn detox, fludis, 3encourage ambulation
[2017-05-28] MEDS: NICOTINE 14 MG/24 HOURS TOPICAL PATCH TD SCH (10:13)
[2017-05-28] MEDS: PRENATAL VITAMINS W/ FOLIC ACID TABLET (FP) PO SCH (10:13)
[2017-05-28] MEDS: VALSARTAN 40 MG TABLET (FP) PO SCH (10:13)
[2017-05-28] MEDS: SERTRALINE HCL 50 MG TABLET (FP) PO SCH (10:15)
[2017-05-28 10:44] LABS: HEMOGLOBIN 12.2 GM/dL (10.7-15.3); MCHC 34.7 g/dl (32.0-36.0); MEAN CELL VOLUME 86.3 fl (80-96); MEAN PLT VOLUME 7.4 fl (7.5-11.1); PLATELET COUNT 397 K/MM3 (134-434); RBC 4.05 M/mm3 (3.60-5.2); RDW 13.6 % (11.6-15.6); WHITE BLOOD COUNT 9.1 K/mm3 (4.0-10.0)
[2017-05-28 10:52] LABS: ALBUMIN 2.5 g/dl (3.4-5.0); ANION GAP 6 (8-16); BILIRUBIN,TOTAL 0.2 mg/dL (0.2-1.0); BLOOD UREA NITROGEN 10 mg/dL (7-18); CALCIUM 8.3 mg/dL (8.5-10.1); CHLORIDE 107 mmol/L (98-107); CO2 29 mmol/L (21-32); CREATININE 0.5 mg/dL (0.55-1.02); GLUCOSE,RANDOM 84 mg/dL (74-106); POTASSIUM 4.1 mmol/L (3.5-5.1); SGOT/AST 13 U/L (15-37); SGPT/ALT 11 U/L (12-78); SODIUM 142 mmol/L (136-145); TOT PROT 6.2 g/dl (6.4-8.2)
[2017-05-28 10:53] LABS: ALK PHOS 66 U/L (45-117)
[2017-05-28] MEDS ORDERED: hydrOXYzine PAMOATE 25 MG CAPSULE (FP) PO PRN (17:49)
[2017-05-28] MEDS: QUEtiapine FUMARATE 25 MG TABLET (FP) PO SCH (22:07)
[2017-05-28] MEDS: THIAMINE HCL 100 MG TABLET (FP) PO SCH (22:07)
[2017-05-29] MEDS: guaiFENesin/D-METHORPHAN HB 10 ML UNIT-DOSE CUPS PO PRN (05:14)
[2017-05-29] MEDS ORDERED: METHADONE HCL 5 MG TABLET (FOR DETOX USE ONLY) PO ONE (10:00)
[2017-05-29] MEDS: VALSARTAN 40 MG TABLET (FP) PO SCH (10:45)
[2017-05-29] MEDS: PRENATAL VITAMINS W/ FOLIC ACID TABLET (FP) PO SCH (10:46)
[2017-05-29] MEDS: NICOTINE 14 MG/24 HOURS TOPICAL PATCH TD SCH (10:46)
[2017-05-29] MEDS: SERTRALINE HCL 50 MG TABLET (FP) PO SCH (10:46)
--- NOTE | 2017-05-29 17:34 | PN ---
BHS COWS - Scale Resting Pulse: 1= [place] 81-100 Sweatin=Flushed/Facial Moisture Restless Observation: 1= Difficult to Sit Still Pupil Size: 0= Normal to Room Light Bone or Joint Aches: 1= Mild Discomfort Runny Nose/ Eye Tearin= Nasal Congestion GI Upset > 30mins: 1= Stomach Cramp Tremor Observation of Outstretched Hands: 2= Slight Tremor Visible Yawning Observation: 1= 1-2x During Session Anxiety or Irritability: 2=Irritable/Anxious Goose Flesh Skin: 0=Smooth Skin COWS Score: 12 BHS Progress Note (SOAP) Subjective: sweats shakes abd cramp Objective: 05/29/17 17:32 A & O x 3 Vital Signs Temperature 97.7 F 05/29/17 14:00 Pulse Rate 80 05/29/17 14:00 Respiratory Rate 18 05/29/17 14:00 Blood Pressure 119/74 05/29/17 14:00 O2 Sat by Pulse Oximetry (%) Laboratory Last Values WBC 9.1 K/mm3 (4.0-10.0) 05/28/17 07:00 RBC 4.05 M/mm3 (3.60-5.2) 05/28/17 07:00 Hgb 12.2 GM/dL (10.7-15.3) D 05/28/17 07:00 Hct 35.0 % (32.4-45.2) 05/28/17 07:00 MCV 86.3 fl (80-96) 05/28/17 07:00 MCH 30.0 pg (25.7-33.7) 05/28/17 07:00 MCHC 34.7 g/dl (32.0-36.0) 05/28/17 07:00 RDW 13.6 % (11.6-15.6) 05/28/17 07:00 Plt Count 397 K/MM3 (134-434) D 05/28/17 07:00 MPV 7.4 fl (7.5-11.1) L 05/28/17 07:00 Sodium 142 mmol/L (136-145) 05/28/17 07:00 Potassium 4.1 mmol/L (3.5-5.1) 05/28/17 07:00 Chloride 107 mmol/L (98-107) 05/28/17 07:00 Carbon Dioxide 29 mmol/L (21-32) 05/28/17 07:00 Anion Gap 6 (8-16) L 05/28/17 07:00 BUN 10 mg/dL (7-18) 05/28/17 07:00 Creatinine 0.5 mg/dL (0.55-1.02) L 05/28/17 07:00 Creat Clearance w eGFR > 60 (>60) 05/28/17 07:00 Random Glucose 84 mg/dL (74-106) 05/28/17 07:00 Calcium 8.3 mg/dL (8.5-10.1) L 05/28/17 07:00 Total Bilirubin 0.2 mg/dL (0.2-1.0) D 05/28/17 07:00 AST 13 U/L (15-37) L 05/28/17 07:00 ALT 11 U/L (12-78) L 05/28/17 07:00 Alkaline Phosphatase 66 U/L (45-117) 05/28/17 07:00 Total Protein 6.2 g/dl (6.4-8.2) L 05/28/17 07:00 Albumin 2.5 g/dl (3.4-5.0) L 05/28/17 07:00 Urine Color Yellow 05/27/17 21:02 Urine Appearance Slcloudy 05/27/17 21:02 Urine pH 5.0 (5.0-8.0) D 05/27/17 21:02 Ur Specific [place] 1.015 (1.001-1.035) 05/27/17 21:02 Urine Protein Negative (NEGATIVE) 05/27/17 21:02 Urine Glucose (UA) Negative (NEGATIVE) 05/27/17 21:02 Urine Ketones Negative (NEGATIVE) 05/27/17 21:02 Urine Blood Negative (NEGATIVE) 05/27/17 21: Urine Nitrite Negative (NEGATIVE) 05/27/17 21:02 Urine Bilirubin Negative (<2.0 mg/dL) 05/27/17 21: Urine Urobilinogen Negative mg/dL (0.2-1.0) 05/27/17 21:02 Ur Leukocyte Esterase Trace (NEGATIVE) 05/27/17 21:02 Urine WBC (Auto) 3 /hpf (3-5) 05/27/17 21:02 Urine RBC (Auto) 1 /hpf (0-3) 05/27/17 21:02 Ur Epithelial Cells Moderate /HPF (FEW) 05/27/17 21:02 Urine Mucus Rare 05/27/17 21:02 RPR Titer Nonreactive (NONREACTIVE) 05/28/17 07:00 labs noted Assessment: 05/29/17 17:34 withdrawal sx dehydration Plan: continue detox increase hydration
[2017-05-29] MEDS: diazePAM 5 MG TABLET PO PRN (22:33)
[2017-05-29] MEDS: QUEtiapine FUMARATE 25 MG TABLET (FP) PO SCH (22:33)
[2017-05-29] MEDS: THIAMINE HCL 100 MG TABLET (FP) PO SCH (22:34)
[2017-05-30] MEDS ORDERED: METHADONE HCL 5 MG TABLET (FOR DETOX USE ONLY) PO ONE (10:00)
[2017-05-30] MEDS: diazePAM 5 MG TABLET PO PRN ×2 (10:18→20:53)
[2017-05-30] MEDS: SERTRALINE HCL 50 MG TABLET (FP) PO SCH (10:18)
[2017-05-30] MEDS: PRENATAL VITAMINS W/ FOLIC ACID TABLET (FP) PO SCH (10:18)
[2017-05-30] MEDS: NICOTINE 14 MG/24 HOURS TOPICAL PATCH TD SCH (10:19)
[2017-05-30] MEDS: VALSARTAN 40 MG TABLET (FP) PO SCH (10:19)
--- NOTE | 2017-05-30 14:06 | PN ---
BHS Progress Note (SOAP) Subjective: joint pain body ache sweat tremor gi distress trouble sleeping at night Objective: 05/30/17 14:05 Vital Signs Temperature 96.3 F L 05/30/17 10:00 Pulse Rate 81 05/30/17 10:00 Respiratory Rate 18 05/30/17 10:00 Blood Pressure 110/64 05/30/17 10:00 O2 Sat by Pulse Oximetry (%) Laboratory Last Values WBC 9.1 K/mm3 (4.0-10.0) 05/28/17 07:00 RBC 4.05 M/mm3 (3.60-5.2) 05/28/17 07:00 Hgb 12.2 GM/dL (10.7-15.3) D 05/28/17 07:00 Hct 35.0 % (32.4-45.2) 05/28/17 07:00 MCV 86.3 fl (80-96) 05/28/17 07:00 MCH 30.0 pg (25.7-33.7) 05/28/17 07:00 MCHC 34.7 g/dl (32.0-36.0) 05/28/17 07:00 RDW 13.6 % (11.6-15.6) 05/28/17 07:00 Plt Count 397 K/MM3 (134-434) D 05/28/17 07:00 MPV 7.4 fl (7.5-11.1) L 05/28/17 07:00 Sodium 142 mmol/L (136-145) 05/28/17 07:00 Potassium 4.1 mmol/L (3.5-5.1) 05/28/17 07:00 Chloride 107 mmol/L (98-107) 05/28/17 07:00 Carbon Dioxide 29 mmol/L (21-32) 05/28/17 07:00 Anion Gap 6 (8-16) L 05/28/17 07:00 BUN 10 mg/dL (7-18) 05/28/17 07:00 Creatinine 0.5 mg/dL (0.55-1.02) L 05/28/17 07:00 Creat Clearance w eGFR > 60 (>60) 05/28/17 07:00 Random Glucose 84 mg/dL (74-106) 05/28/17 07:00 Calcium 8.3 mg/dL (8.5-10.1) L 05/28/17 07:00 Total Bilirubin 0.2 mg/dL (0.2-1.0) D 05/28/17 07:00 AST 13 U/L (15-37) L 05/28/17 07:00 ALT 11 U/L (12-78) L 05/28/17 07:00 Alkaline Phosphatase 66 U/L (45-117) 05/28/17 07:00 Total Protein 6.2 g/dl (6.4-8.2) L 05/28/17 07:00 Albumin 2.5 g/dl (3.4-5.0) L 05/28/17 07:00 Urine Color Yellow 05/27/17 21:02 Urine Appearance Slcloudy 05/27/17 21:02 Urine pH 5.0 (5.0-8.0) D 05/27/17 21:02 Ur Specific [place] 1.015 (1.001-1.035) 05/27/17 21:02 Urine Protein Negative (NEGATIVE) 05/27/17 21:02 Urine Glucose (UA) Negative (NEGATIVE) 05/27/17 21:02 Urine Ketones Negative (NEGATIVE) 05/27/17 21:02 Urine Blood Negative (NEGATIVE) 05/27/17 21:02 Urine Nitrite Negative (NEGATIVE) 05/27/17 21:02 Urine Bilirubin Negative (<2.0 mg/dL) 05/27/17 21:02 Urine Urobilinogen Negative mg/dL (0.2-1.0) 05/27/17 21:02 Ur Leukocyte Esterase Trace (NEGATIVE) 05/27/17 21:02 Urine WBC (Auto) 3 /hpf (3-5) 05/27/17 21:02 Urine RBC (Auto) 1 /hpf (0-3) 05/27/17 21:02 Ur Epithelial Cells Moderate /HPF (FEW) 05/27/17 21:02 Urine Mucus Rare 05/27/17 21:02 RPR Titer Nonreactive (NONREACTIVE) 05/28/17 07:00 lab noted Assessment: 05/30/17 14:05 withdrawal sx Plan: continue detox
[2017-05-30] MEDS: THIAMINE HCL 100 MG TABLET (FP) PO SCH (22:20)
[2017-05-30] MEDS: QUEtiapine FUMARATE 25 MG TABLET (FP) PO SCH (22:20)
[2017-05-31] MEDS ORDERED: METHADONE HCL 10 MG TABLET (FOR DETOX USE ONLY) PO ONE (10:00)
[2017-05-31] MEDS: NICOTINE 14 MG/24 HOURS TOPICAL PATCH TD SCH (10:20)
[2017-05-31] MEDS: PRENATAL VITAMINS W/ FOLIC ACID TABLET (FP) PO SCH (10:20)
[2017-05-31] MEDS: SERTRALINE HCL 50 MG TABLET (FP) PO SCH (10:20)
[2017-05-31] MEDS: VALSARTAN 40 MG TABLET (FP) PO SCH (10:20)
--- NOTE | 2017-05-31 11:02 | PN ---
BHS Progress Note (SOAP) Subjective: feeling better no tremor less sweat sleep better denies pain Objective: 05/31/17 11:00 Vital Signs Temperature 97.9 F 05/31/17 09:42 Pulse Rate 80 05/31/17 09:42 Respiratory Rate 18 05/31/17 09:42 Blood Pressure 117/73 05/31/17 09:42 O2 Sat by Pulse Oximetry (%) Laboratory Last Values WBC 9.1 K/mm3 (4.0-10.0) 05/28/17 07:00 RBC 4.05 M/mm3 (3.60-5.2) 05/28/17 07:00 Hgb 12.2 GM/dL (10.7-15.3) D 05/28/17 07:00 Hct 35.0 % (32.4-45.2) 05/28/17 07:00 MCV 86.3 fl (80-96) 05/28/17 07:00 MCH 30.0 pg (25.7-33.7) 05/28/17 07:00 MCHC 34.7 g/dl (32.0-36.0) 05/28/17 07:00 RDW 13.6 % (11.6-15.6) 05/28/17 07:00 Plt Count 397 K/MM3 (134-434) D 05/28/17 07:00 MPV 7.4 fl (7.5-11.1) L 05/28/17 07:00 Sodium 142 mmol/L (136-145) 05/28/17 07:00 Potassium 4.1 mmol/L (3.5-5.1) 05/28/17 07:00 Chloride 107 mmol/L (98-107) 05/28/17 07:00 Carbon Dioxide 29 mmol/L (21-32) 05/28/17 07:00 Anion Gap 6 (8-16) L 05/28/17 07:00 BUN 10 mg/dL (7-18) 05/28/17 07:00 Creatinine 0.5 mg/dL (0.55-1.02) L 05/28/17 07:00 Creat Clearance w eGFR > 60 (>60) 05/28/17 07:00 Random Glucose 84 mg/dL (74-106) 05/28/17 07:00 Calcium 8.3 mg/dL (8.5-10.1) L 05/28/17 07:00 Total Bilirubin 0.2 mg/dL (0.2-1.0) D 05/28/17 07:00 AST 13 U/L (15-37) L 05/28/17 07:00 ALT 11 U/L (12-78) L 05/28/17 07:00 Alkaline Phosphatase 66 U/L (45-117) 05/28/17 07:00 Total Protein 6.2 g/dl (6.4-8.2) L 05/28/17 07:00 Albumin 2.5 g/dl (3.4-5.0) L 05/28/17 07:00 Urine Color Yellow 05/27/17 21:02 Urine Appearance Slcloudy 05/27/17 21:02 Urine pH 5.0 (5.0-8.0) D 05/27/17 21:02 Ur Specific [place] 1.015 (1.001-1.035) 05/27/17 21:02 Urine Protein Negative (NEGATIVE) 05/27/17 21:02 Urine Glucose (UA) Negative (NEGATIVE) 05/27/17 21:02 Urine Ketones Negative (NEGATIVE) 05/27/17 21:02 Urine Blood Negative (NEGATIVE) 05/27/17 21:02 Urine Nitrite Negative (NEGATIVE) 05/27/17 21:02 Urine Bilirubin Negative (<2.0 mg/dL) 05/27/17 21:02 Urine Urobilinogen Negative mg/dL (0.2-1.0) 05/27/17 21:02 Ur Leukocyte Esterase Trace (NEGATIVE) 05/27/17 21:02 Urine WBC (Auto) 3 /hpf (3-5) 05/27/17 21:02 Urine RBC (Auto) 1 /hpf (0-3) 05/27/17 21:02 Ur Epithelial Cells Moderate /HPF (FEW) 05/27/17 21:02 Urine Mucus Rare 05/27/17 21:02 RPR Titer Nonreactive (NONREACTIVE) 05/28/17 07:00 lab noted Assessment: 05/31/17 11:01 mild withdrawal sx Plan: medically supervised detox
[2017-05-31] MEDS: QUEtiapine FUMARATE 25 MG TABLET (FP) PO SCH (22:19)
[2017-05-31] MEDS: THIAMINE HCL 100 MG TABLET (FP) PO SCH (22:19)
[2017-05-31] MEDS: guaiFENesin/D-METHORPHAN HB 10 ML UNIT-DOSE CUPS PO PRN (22:20)
[2017-06-01] MEDS ORDERED: METHADONE HCL 5 MG TABLET (FOR DETOX USE ONLY) PO ONE (06:00)
[2017-06-01 06:57] VITALS: BP 92/56; PULSE 57; TEMP 97.9
--- NOTE | 2017-06-01 09:28 | DS ---
[facility] Detox Discharge Summary Admission Date: 05/27/17 Discharge Date: 06/01/17 - History Present History: Opioid Dependence Additional Comments: 57 years old female admitted on 05/27/17 for opioid withdrawal sx completed detox regimen tolerated well denies opioid withdrawal sx alert oriented x 3 no acute distress agrees aftercare at [facility] for medical, psychiatric, and addiction follow up - Physical Exam Results Vital Signs: Vital Signs Temperature 97.9 F 06/01/17 06:56 Pulse Rate 57 L 06/01/17 06:56 Respiratory Rate 18 06/01/17 06:56 Blood Pressure 92/56 06/01/17 06:56 O2 Sat by Pulse Oximetry (%) Pertinent Admission Physical Exam Findings: withdrawal sx Vital Signs Temperature 97.9 F 06/01/17 06:56 Pulse Rate 57 L 06/01/17 06:56 Respiratory Rate 18 06/01/17 06:56 Blood Pressure 92/56 06/01/17 06:56 O2 Sat by Pulse Oximetry (%) Laboratory Last Values WBC 9.1 K/mm3 (4.0-10.0) 05/28/17 07:00 RBC 4.05 M/mm3 (3.60-5.2) 05/28/17 07:00 Hgb 12.2 GM/dL (10.7-15.3) D 05/28/17 07:00 Hct 35.0 % (32.4-45.2) 05/28/17 07:00 MCV 86.3 fl (80-96) 05/28/17 07:00 MCH 30.0 pg (25.7-33.7) 05/28/17 07:00 MCHC 34.7 g/dl (32.0-36.0) 05/28/17 07:00 RDW 13.6 % (11.6-15.6) 05/28/17 07:00 Plt Count 397 K/MM3 (134-434) D 05/28/17 07:00 MPV 7.4 fl (7.5-11.1) L 05/28/17 07:00 Sodium 142 mmol/L (136-145) 05/28/17 07:00 Potassium 4.1 mmol/L (3.5-5.1) 05/28/17 07:00 Chloride 107 mmol/L (98-107) 05/28/17 07:00 Carbon Dioxide 29 mmol/L (21-32) 05/28/17 07:00 Anion Gap 6 (8-16) L 05/28/17 07:00 BUN 10 mg/dL (7-18) 05/28/17 07:00 Creatinine 0.5 mg/dL (0.55-1.02) L 05/28/17 07:00 Creat Clearance w eGFR > 60 (>60) 05/28/17 07:00 Random Glucose 84 mg/dL (74-106) 05/28/17 07:00 Calcium 8.3 mg/dL (8.5-10.1) L 05/28/17 07:00 Total Bilirubin 0.2 mg/dL (0.2-1.0) D 05/28/17 07:00 AST 13 U/L (15-37) L 05/28/17 07:00 ALT 11 U/L (12-78) L 05/28/17 07:00 Alkaline Phosphatase 66 U/L (45-117) 05/28/17 07:00 Total Protein 6.2 g/dl (6.4-8.2) L 05/28/17 07:00 Albumin 2.5 g/dl (3.4-5.0) L 05/28/17 07:00 Urine Color Yellow 05/27/17 21:02 Urine Appearance Slcloudy 05/27/17 21:02 Urine pH 5.0 (5.0-8.0) D 05/27/17 21:02 Ur Specific [place] 1.015 (1.001-1.035) 05/27/17 21:02 Urine Protein Negative (NEGATIVE) 05/27/17 21:02 Urine Glucose (UA) Negative (NEGATIVE) 05/27/17 21:02 Urine Ketones Negative (NEGATIVE) 05/27/17 21:02 Urine Blood Negative (NEGATIVE) 05/27/17 21: Urine Nitrite Negative (NEGATIVE) 05/27/17 21:02 Urine Bilirubin Negative (<2.0 mg/dL) 05/27/17 21: Urine Urobilinogen Negative mg/dL (0.2-1.0) 05/27/17 21:02 Ur Leukocyte Esterase Trace (NEGATIVE) 05/27/17 21:02 Urine WBC (Auto) 3 /hpf (3-5) 05/27/17 21:02 Urine RBC (Auto) 1 /hpf (0-3) 05/27/17 21:02 Ur Epithelial Cells Moderate /HPF (FEW) 05/27/17 21:02 Urine Mucus Rare 05/27/17 21:02 RPR Titer Nonreactive (NONREACTIVE) 05/28/17 07:00 lab noted - Treatment Hospital Course: Detox Protocol Followed, Detoxed Safely, Responded well, Discharged Condition Good, Rehab Referral Accepted Patient has Accepted a Rehab Referral to: [facility] - Medication Discharge Medications: Ambulatory Orders Naltrexone Microspheres [Vivitrol] 380 mg IM MONTHLY 03/02/17 Albuterol 2.5/Ipratropium 0.5 [Duoneb -] 1 amp NEB Q4H PRN #120 amp 04/22/17 Quetiapine Fumarate [Seroquel -] 25 mg PO HS #30 tablet 04/22/17 Sertraline HCl [Zoloft] 200 mg PO DAILY #30 tablet 04/22/17 Zolpidem Tartrate [Ambien] 10 mg PO HS PRN tablet MDD 1 04/22/17 Sertraline HCl [Zoloft] 100 mg PO DAILY 05/28/17 Valsartan [Diovan] 40 mg PO DAILY #30 tablet 05/31/17 - Diagnosis (1) Opioid dependence with withdrawal Current Visit: Yes Status: Acute (2) Nicotine dependence Current Visit: Yes Status: Acute Qualifiers: Nicotine product type: cigarettes Substance use status: in withdrawal Qualified Code(s): F17.213 - Nicotine dependence, cigarettes, with withdrawal - AMA Did Patient Leave Against Medical Advice: No
== END 2017-06-01 09:04 | disposition home or self-care (01) | DRG 773 ==
LOC: YASAS 18:35 → Y6N 21:25
PROVIDERS: ADMIT Internal Medicine; ATTEND Internal Medicine
PROC: HZ2ZZZZ Detoxification Services for Substance Abuse Treatment (ICD-10-PCS; principal; 2017-05-27)
DX: F11.23 Opioid dependence with withdrawal (principal); F17.213 Nicotine dependence, cigarettes, with withdrawal; F19.24 Other psychoactive substance dependence with psychoactive substance-induced mood disorder; F33.9 Major depressive disorder, recurrent, unspecified; R56.9 Unspecified convulsions; M54.32 Sciatica, left side
CPT/HCPCS: 36415; 80053; 81003; 81015; 85027; 86593; 93005; 93010